=== PATIENT | female | born 1975 | race Caucasian/White ===

== ENCOUNTER → 2016-06-28 | Outpatient (REF) | payer OTHER, MEDICARE, MEDICAID ==
[~2016-06-28] MED LIST: *BLDWK1; /LAMO10TA OR; /QUET10TA OR; AMO250; AMO500; ASPI325T OR; CETI10TA PO; COLA100C2 OR; CYCL10TA PO; DIAZ5TAB PO; DOXYCYC100 PO; FLEXERIL PO; GABA300C3 PO; HYDR-3713 PO; IBUP800T OR; LAMISILCR TOPICAL; LAMO150T PO; LATU20TA PO; NAPROSY500 PO; NORC10TA2 PO; PERC5TAB6 PO; PHENERGA25 PO; PREDNISO50 PO; PREVMIS PO; PROTONIX40; SENN8.6T14 OR; SERO200T OR; SERT-138 PO; TAMS0.4C2 PO; TRAZ50TA4 PO; TYLENOL #3 ELIXIR PO; VICO5TAB OR; VITA100066 PO; VITATAB73 PO; VITMTA PO; ZOLO50TA OR; ZYRTEC10 PO
== END | disposition home or self-care (01) ==
LOC: M LAB REF 12:26
PROVIDERS: ATTEND Physician Assistant
DX: B34.9 Viral infection, unspecified (principal)

== ENCOUNTER 2016-08-18 21:28 | Inpatient (IN) | payer OTHER, MEDICARE, MEDICAID ==
[~2016-08-18] VITALS: Ht 172.7 cm; Wt 107.9 kg
[~2016-08-18 21:28] MED LIST changes: +GABA-282 PO; -GABA300C3 PO
[2016-08-18] MEDS ORDERED: ACYC200CA PO (21:55)
[2016-08-18] MEDS ORDERED: HYDR-3713 PO (21:55)
[2016-08-18] MEDS ORDERED: CYCL10TA PO (21:55)
[2016-08-18] MEDS ORDERED: NAPR500T2 PO (21:55)
[2016-08-18] MEDS ORDERED: GABA600T PO (21:55)
[2016-08-18] MEDS ORDERED: QUET5TAB PO (21:55)
[2016-08-18] MEDS ORDERED: TRAM50TA2 PO (21:55)
[2016-08-18] MEDS ORDERED: HYDROmorphone HCL 1 MG/ML SYRINGE (J1170) IV ONE (23:15)
[2016-08-18] MEDS ORDERED: KETOROLAC 30 MG/ML VIAL (J1885) IV ONE (23:15)
[2016-08-18] MEDS ORDERED: diphenhydrAMINE INJ 50MG/ML VIAL (J1200) IV STA (23:57)
[2016-08-19] MEDS ORDERED: MOM 30ML SUSPENSION UDC PO PRN (02:15)
[2016-08-19] MEDS ORDERED: traZODone 50 MG TAB PO PRN (02:15)
[2016-08-19] MEDS ORDERED: ACETAMINOPHEN TAB 650MG DOSE (2X325MG) PO PRN (02:15)
[2016-08-19] MEDS ORDERED: MAALOX 30 ML SUSP *UDC PO PRN (02:15)
[2016-08-19 03:11] VITALS: BP 139/82
[2016-08-19] MEDS: ACYCLOVIR 200 MG CAPSULE PO SCH ×2 (14:36→22:17)
[2016-08-19] MEDS: DOCUSATE SODIUM 100 MG CAP PO SCH ×2 (14:36→22:17)
[2016-08-19] MEDS: traMADol 50 MG TAB PO SCH ×2 (14:37→22:19)
[2016-08-19] MEDS: diazePAM 5 MG TAB PO SCH ×2 (14:37→22:18)
[2016-08-19] MEDS: NAPROXEN 250 MG TAB PO SCH ×2 (14:38→22:20)
[2016-08-19] MEDS: CYCLOBENZAPRINE 10 MG TAB PO SCH ×2 (15:37→22:17)
[2016-08-19] MEDS: GABAPENTIN 300 MG CAP PO SCH ×2 (15:37→22:18)
[2016-08-19] MEDS ORDERED: HYDR-3713 PO (16:46)
[2016-08-19 18:00] VITALS: BP 136/94
[2016-08-19] MEDS: NORCO, ANEXSIA 5/325MG TABLET (HYDROcodone/ACETAMINOPHEN) PO PRN ×2 (18:17→22:31)
[2016-08-19] MEDS: diphenhydrAMINE INJ 50MG/ML VIAL (J1200) IM PRN ×2 (18:17→22:31)
[2016-08-19] MEDS: QUEtiapine FUMARATE 100 MG TAB PO SCH (22:17)
[2016-08-19] MEDS: lamoTRIgine 100MG TAB PO SCH (22:19)
[2016-08-19] MEDS: DULoxetine 20 MG CAP (CYMBALTA) PO SCH (22:20)
[2016-08-19] MEDS: diphenhydrAMINE CREAM 30GM TOP PRN (23:43)
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
[2016-08-20 06:34] VITALS: BP 139/79
[2016-08-20 09:43] VITALS: BP 132/71
[2016-08-20] MEDS: DOCUSATE SODIUM 100 MG CAP PO SCH ×2 (09:46→20:49)
[2016-08-20] MEDS: GABAPENTIN 300 MG CAP PO SCH ×3 (09:46→20:49)
[2016-08-20] MEDS: diazePAM 5 MG TAB PO SCH ×2 (09:46→20:47)
[2016-08-20] MEDS: NAPROXEN 250 MG TAB PO SCH ×2 (09:47→20:49)
[2016-08-20] MEDS: ACYCLOVIR 200 MG CAPSULE PO SCH ×2 (09:47→20:47)
[2016-08-20] MEDS: CYCLOBENZAPRINE 10 MG TAB PO SCH ×3 (09:47→20:49)
[2016-08-20] MEDS: traMADol 50 MG TAB PO SCH ×2 (09:48→20:48)
[2016-08-20] MEDS: diphenhydrAMINE CREAM 30GM TOP PRN (09:52)
[2016-08-20] MEDS: NORCO, ANEXSIA 5/325MG TABLET (HYDROcodone/ACETAMINOPHEN) PO PRN ×2 (09:53→18:08)
[2016-08-20] MEDS: diphenhydrAMINE 12.5MG/5ML ELIXIR UDC PO PRN (09:56)
[2016-08-20] MEDS ORDERED: LATU40TA PO (13:30)
[2016-08-20 18:00] VITALS: BP 137/87
--- NOTE | 2016-08-20 20:42 | ECGEPIP ---
Stationary ECG Study [facility] - ED Test Date: 2016-08-18 Pat Name: KMI BUCIO Department: Room: [place] [address] Gender: F Principal Strategist: mr : 1975 Requested By: EZEKIEL Williamson Order Number: [id number] Reading MD: Karin Hernandez Measurements Intervals [place] Rate: 93 P: 50 UT: 154 QRS: 62 QRSD: 98 T: 26 QT: 343 QTc: 427 Interpretive Statements SINUS RHYTHM INCREASED RATE 09/25/15 Electronically Signed On 08-20-2016 20:42:46 EDT by Karin Hernandez
[2016-08-20] MEDS: lamoTRIgine 100MG TAB PO SCH (20:47)
[2016-08-20] MEDS: DULoxetine 20 MG CAP (CYMBALTA) PO SCH (20:48)
[2016-08-20] MEDS: QUEtiapine FUMARATE 100 MG TAB PO SCH (20:49)
--- NOTE | 2016-08-20 22:13 | HPE ---
DATE OF ADMISSION: 08/19/2016 HISTORY OF PRESENT ILLNESS: Please refer to psychiatric history and evaluation for further details on this admission. This examination and history is intended for medical issues, which may need treatment, followup, or consult with this 40-year-old female. ALLERGIES: LITHIUM, TRAZODONE, MORPHINE. PRIMARY CARE PROVIDER: Dr. Garrett at the [facility]. SOCIAL HISTORY: She is . Lives with her daughter. She is retired from the . She retired in 1992. EtOH (ethanol): None. Smokes: None. Recreational drug use: Denies any. PAST MEDICAL HISTORY: 1. Kidney stones, for which she had a ureteral stent in September 2015. 2. She is currently being worked up for possible multiple sclerosis (MS). She has had an MRI at the [facility] in [place]. 3. She has history of degenerative disc disease. 4. Bilateral hip bursitis. 5. Chronic pain. PAST SURGICAL HISTORY: 1. Ureteral stent, September 2015. 2. Cholecystectomy. 3. Correction of lazy eye bilaterally as a child. LABORATORY STUDIES: WBC 7.7, hemoglobin 13.1, hematocrit 14.2, platelets 324. Electrolytes were normal. BUN 7, creatinine 0.52. AST was minimally elevated at 38. TSH was 3.99. HOME MEDICATIONS: - hydrocodone 5/325 one by mouth three times a day as needed for pain - Zovirax 200 mg by mouth twice a day for herpes suppression - cyclobenzaprine 10 mg by mouth three times a day as needed for muscle spasms - Valium 5 mg by mouth, which she states was recently increased to 10 mg three times a day as needed for muscle spasm. [facility] - gabapentin 600 mg by mouth three times a day - naproxen 500 mg by mouth as needed for pain - Seroquel 50 mg by mouth - tramadol 50 mg by mouth three times a day as needed for pain - Lamictal 150 mg by mouth at bedtime FAMILY HISTORY: Noncontributory. REVIEW OF SYSTEMS: No complaint of headache. No blurred or double vision. No fever. No chills. No tinnitus. No hoarseness. No difficulty swallowing. No lightheadedness. No vertigo. BREASTS: No masses. CARDIOVASCULAR: No complaints of chest pain, shortness of breath, palpitations, or edema. RESPIRATORY: No chronic cough. No sputum production. No hemoptysis. No orthopnea. No wheeze. GASTROINTESTINAL: No nausea, vomiting, diarrhea. No hematochezia. No melena. No complaints of abdominal pain. GENITOURINARY: No hematuria, dysuria, frequency. MUSCULOSKELETAL: Complains of joint pain, back pain, bilateral hip pain. Follows with [facility]. No joint redness or swelling. ENDOCRINE: No polyuria, polydipsia, polyphagia. HEMATOLOGICAL: No history of anemia. NEUROLOGIC: Is being currently worked up for MS per the patient at the [facility]. No history of seizures. PSYCH LOGICAL: See psychiatric in history of present illness (HPI). PHYSICAL EXAMINATION: A 40-year-old female, ambulating with a cane. Height 68 inches, weight 107.9 kg, body mass index of 36.2. Blood pressure 139/82, pulse 100, respirations 20, temperature 98.1. Patient is alert and oriented times three. Pupils are equal and reactive to light. Extraocular muscles (EOMs) intact. Corneae and sclerae clear. Conjunctivae is normal. No facial asymmetry. Pharynx, tongue, and gums pink and moist. Tongue is midline. Neck is supple without lymphadenopathy. No thyromegaly. No goiter. Chest: Clear to auscultation without wheeze or retraction. Heart is regular. Abdomen benign. Bowel sounds positive. Genitourinary ()/rectal not done. Extremities show arthritic changes. No cyanosis, clubbing, or edema. Peripheral pulses equal and palpable bilaterally. Skin is warm and dry. IMPRESSION AND PLAN: Psychiatric plan per psychiatry. Continued followup for workup of multiple sclerosis (MS) with [facility] Degenerative disc disease, bilateral hip bursitis. Continue treatment by [facility]. Consider pain consult. Patient requests Benadryl elixir for itching and hives. Will order 50 mg every 6 hours as needed for itching and spray for hives. TSH slightly elevated. Will get a thyroid profile.
--- NOTE | 2016-08-21 06:15 | IPN ---
DATE: 08/20/2016 The patient today states that she is feeling much better. She says that she is not having any suicidal thoughts and that she slept better and has no complaints. MENTAL STATUS EXAMINATION: She is alert and oriented times three. She is pleasant and cooperative, verbally spontaneous. Eye contact is good. There is no formal thought disorder. Mood is good. Affect full range and appropriate. She is not psychotic, suicidal or homicidal. Concentration fair. Memory intact. Insight and judgment good. DIAGNOSIS: Bipolar disorder type 1, depressed, severe. Post traumatic stress disorder. TREATMENT PLAN: At this point, the patient will continue to be monitored for continued resolution of suicidal ideations and continued elevation and stabilization of her mood.
[2016-08-21 06:42] VITALS: BP 116/70
[2016-08-21] MEDS: NORCO, ANEXSIA 5/325MG TABLET (HYDROcodone/ACETAMINOPHEN) PO PRN ×2 (06:56→15:00)
[2016-08-21] MEDS: diphenhydrAMINE 12.5MG/5ML ELIXIR UDC PO PRN (07:12)
[2016-08-21] MEDS: DOCUSATE SODIUM 100 MG CAP PO SCH (08:54)
[2016-08-21] MEDS: CYCLOBENZAPRINE 10 MG TAB PO SCH ×2 (08:54→15:00)
[2016-08-21] MEDS: GABAPENTIN 300 MG CAP PO SCH ×2 (08:54→15:00)
[2016-08-21] MEDS: diphenhydrAMINE CREAM 30GM TOP PRN (08:54)
[2016-08-21] MEDS: diazePAM 5 MG TAB PO SCH (08:55)
[2016-08-21] MEDS: NAPROXEN 250 MG TAB PO SCH (08:55)
[2016-08-21] MEDS: traMADol 50 MG TAB PO SCH (08:56)
[2016-08-21] MEDS: ACYCLOVIR 200 MG CAPSULE PO SCH (08:56)
--- NOTE | 2016-08-21 13:40 | DS.PDOC ---
[facility] Discharge Summary Discharge Summary DATE OF ADMISSION: Aug 19, 2016 at 02:08 DATE OF DISCHARGE: August 21, 2016 @ DISCHARGE DIAGNOSES: 1. Bipolar I disorder 2. PTSD REASON FOR ADMISSION: pt presented to ED with question about her oxycodone prescribed for back pain. She had taken her last dose for the day 2 hours earlier and wanted to know if she could take more or not. She had a serious suicide TREATMENT AND PROGRESS ON THE UNIT : Pt was admitted early Sunday a.m. with back pain. She adjusted easily to the unit. She took meds as prescribed but was complaining that [facility] staff did not order her Valium and her oxycodone correctly. Upon meeting with PNP this morning she requested discharge as she is planning a trip to [place] later in the week. She plans on driving there. She states she has a friend who will help her drive. Critical Power Install Technician contacted Hamlet Celestin of the [facility] program in [place], [place]. He has been working with this patient since April. He states she has been stable and doing well as an outpatient. He had no concerns with having her discharged today. Critical Power Install Technician also left a message for pts friend Katie Davis [phone]- [phone] attempting to obtain collateral information from her. This person has not made contact with the unit. When pt was informed that her discharge was being planned for today she was pleased. Later her friends started to call her and say they were coming up to visit and now Urszula is reporting chest pain and bilateral edema. She states "I can follow up as an outpatient" but since I' m in the hospital I thought someone could take care of it for me. She was not SOB, not diaphoretic and was not reporting pain in her face or arm. She had an H &P done over the weekend and there is no mention of any of this. Patient receives her medical care at the [facility]. She plans to follow up with them. Critical Power Install Technician also spoke with a friend to Jeni Renae, Katie Davis. This person states that she has known Urszula for a long time and that she found her doing well prior to the hospitalization. To her knowledge Urszula was here to find out about her medication for back pain. She offers that one time when Urszula felt her parents did not give her enough attention she told them she had AIDS when she did not. She also has observed Urszula on the phone changing her voice to sound ill and once off the phone she resumed her usual speaking voice. In the friend's estimation she said that Urszula "makes things up" and you cannot always tell what is going on with her. DISCHARGE ASSESSMENT: pt requested discharge and appeared to be appropriate. No SI, [place]. No delusional thoughts. Not depressed. She is anticipating a trip to [place] with a friend and her daughter. Pt then became upset when discharge was imminent and began c/o symptoms related to "h-pylori, chest pain and edema". She had an EKG during this admission. MENTAL STATUS EXAMINATION ON DISCHARGE: Patient is a 40year old female, who is retired from the [employer] and on disability. Speech is clear, fluent and spontaneous. Language skills are: articulate Thought processes: no delusions, no hallucinations, linear, clear. Thought content: focused on pain, physical health, trip to [place]. Abstract reasoning, and computation: adequate Description of associations: WNL Description of abnormal or psychotic thoughts: none Judgment: limited Insight: poor Orientation to :oriented to person, place, time. Recent and remote memory: intact Attention span and concentration: adequate Fund of knowledge: adequate Mood: irritable. Affect: anxious, irritable. MEDICATIONS ON DISCHARGE: Pt has adequate medications at home. No changes in psychiatric medications at this time. PLAN/FOLLOWUP ARRANGEMENTS: pt receives services as an outpatient at the [facility] in [place], part of the [facility]. Pt states she has a psychiatry appt on Sunday of this week. The amount of time spent in the coordination of care for this patient was approximately 50 minutes. Vital Signs/I&Os Vital Signs Date Time Temp Pulse Resp B/P Pulse Ox O2 Delivery O2 Flow Rate FiO2 08/21/16 08:56 16 08/21/16 06:42 98.1 105 116/70 08/19/16 18:00 Room Air 08/19/16 02:30 98 Medications Scheduled Acyclovir (Zovirax) 200 Mg Cap 200 MG PO 5XD (Reported) Gabapentin (Gabapentin) 600 Mg Tab 600 MG PO TID (Reported) Lamotrigine (Lamotrigine) 150 Mg Tab 150 MG PO QHS (Reported) Lurasidone Hydrochloride (Latuda) 40 Mg Tab 40 MG PO DAILY . (Reported) Scheduled PRN Acetaminophen/Hydrocodone (Hydrocodone/Acetaminophen 5-325 mg) 1 Tab Tab 1 TAB PO TID PRN PRN PAIN (Reported) Cyclobenzaprine HCl (Cyclobenzaprine HCl) 10 Mg Tab #15 10 MG PO TID PRN PRN MUSCLE SPASMS (Reported) Diazepam (Diazepam) 5 Mg Tab 5 MG PO BID PRN PRN ANXIETY (Reported) Naproxen (Naproxen) 500 Mg Tab 500 MG PO PRN PAIN OR FEVER (Reported) Tramadol HCl (Tramadol HCl) 50 Mg Tab 50 MG PO PRN PAIN OR FEVER (Reported) Miscellaneous Medications Quetiapine Fumerate (Quetiapine Fumarate) 50 Mg Tab 50 MG PO (Reported) Allergies Coded Allergies: Morphine (Verified Allergy, Mild, RASH, 08/18/16) Pt reports she can tolerate if she is pre-medicated with Benadryl Hector (Unverified Allergy, Unknown, N/V, 08/19/16) Trazodone (Unverified Allergy, Unknown, CHACE, 08/19/16) Italia Freeman Aug 21, 2016 13:40
[2016-08-21] MEDS ORDERED: COLA100C3 PO (15:13)
[2016-08-21] MEDS ORDERED: CYMB1CAP4 PO (16:06)
--- NOTE | 2016-08-21 18:02 | ECGEPIP ---
Stationary ECG Study [facility] Test Date: 2016-08-21 Pat Name: KIM BUCIO Department: Room: [place] [address] Gender: F Inlayer Silver: GREG : 1975 Requested By: Cristy Vidales Order Number: [id number] Reading MD: Collins Sol Measurements Intervals [place] Rate: 108 P: 56 [place]: 163 QRS: 63 QRSD: 101 T: 14 QT: 323 QTc: 433 Interpretive Statements SINUS TACHYCARDIA Otherwise normal Electronically Signed On 08-21-2016 18:02:39 EDT by Collins Sol
[2016-08-22] MEDS ORDERED: VITATAB11 PO (01:24)
[2016-08-22] MEDS ORDERED: BENA25CA4 PO (01:24)
[2016-08-22] MEDS ORDERED: PRENTAB9 PO (01:24)
[2016-08-22] MEDS ORDERED: FISH1000 PO (01:24)
[2016-08-22] MEDS ORDERED: BENA2CRE3 EXT (01:24)
[2016-08-22] MEDS ORDERED: VITA200016 PO (01:24)
== END 2016-08-21 18:05 | disposition home or self-care (01) | DRG 885 ==
LOC: EDBD 21:28 → M ED 22:32 → M ED INP 08-19 02:08 → M PSY 08-19 02:53
PROVIDERS: ADMIT Psychiatry & Neurology Psychiatry; ATTEND Psychiatry & Neurology Child & Adolescent Psychiatry
DX: F31.4 Bipolar disorder, current episode depressed, severe, without psychotic features (principal); F43.10 Post-traumatic stress disorder, unspecified; M54.9 Dorsalgia, unspecified; Z91.410 Personal history of adult physical and sexual abuse; M70.71 Other bursitis of hip, right hip; M70.72 Other bursitis of hip, left hip; Z87.442 Personal history of urinary calculi; Z96.0 Presence of urogenital implants; Z79.891 Long term (current) use of opiate analgesic; Z79.899 Other long term (current) drug therapy; Z88.5 Allergy status to narcotic agent; Z88.8 Allergy status to other drugs, medicaments and biological substances

== ENCOUNTER 2016-08-21 20:40 | Inpatient (IN) | payer OTHER, MEDICARE, MEDICAID ==
[~2016-08-21] VITALS: Ht 172.7 cm; Wt 109.5 kg
[~2016-08-21 20:40] MED LIST changes: +ACYC200CA PO; +COLA100C3 PO; +CYMB1CAP4 PO; +GABA600T PO; +LATU40TA PO; +NAPR500T2 PO; +QUET5TAB PO; +TRAM50TA2 PO
[2016-08-21] MEDS ORDERED: ASPIRIN 81 MG CHEW TABLET PO ONE (22:15)
[2016-08-21] MEDS ORDERED: GI COCKTAIL 50ML BTL(HYOSCYAMINE/MAALOX/LIDOCAINE VISCOUS)(1:3:1) PO ONE (22:15)
[2016-08-21 22:17] LABS: INR 0.93
[2016-08-21 22:32] LABS: DIFF SLIDE NUMBER 356; MEAN CORPUSCULAR HEMOGLOBIN 28.6 pg (27.0-33.0); MEAN CORPUSCULAR HGB CONC 32.7 g/dl (32.0-36.5); MEAN CORPUSCULAR VOLUME 87.6 fl (80.0-96.0); PLATELET COUNT, AUTOMATED 349 k/mm3 (150-450); RED CELL DISTRIBUTION WIDTH 13.2 % (11.5-14.5); WHITE BLOOD COUNT 7.5 K/mm3 (4.0-10.0)
[2016-08-21 22:33] LABS: ALBUMIN 3.7 GM/DL (3.2-5.2); ALBUMIN/GLOBULIN RATIO 1.06 (1.00-1.93); ALKALINE PHOSPHATASE 78 U/L (45-117); ALT/SGPT 81 U/L (12-78); ANION GAP 7 MEQ/L (8-16); AST/SGOT 50 U/L (15-37); BILIRUBIN,DIRECT < 0.1 MG/DL (0.0-0.2); BILIRUBIN,TOTAL 0.2 MG/DL (0.2-1.0); BLOOD UREA NITROGEN 12 MG/DL (7-18); CALCIUM LEVEL 8.9 MG/DL (8.5-10.1); CARBON DIOXIDE LEVEL 31 MEQ/L (21-32); CHLORIDE LEVEL 101 MEQ/L (98-107); CREATININE FOR GFR 0.57 MG/DL (0.55-1.02); GLOMERULAR FILTRATION RATE > 60.0 (>58); GLUCOSE, FASTING 99 MG/DL (70-105); POTASSIUM SERUM 4.1 MEQ/L (3.5-5.1); SODIUM LEVEL 139 MEQ/L (136-145); TOTAL PROTEIN 7.2 GM/DL (6.4-8.2)
[2016-08-21 22:49] LABS: BASOPHILS 2 % (0-4); EOSINOPHILS 3 % (0-5)
[2016-08-21] MEDS ORDERED: ISOVUE-370 76% 100ML VIAL (Q9967) As Ordered ONE (23:05)
--- NOTE | 2016-08-21 23:20 | REPUSA ---
Clinical history: Pain, swelling. Findings: The common femoral, superficial femoral, popliteal, and other deep venous structures compre ss normally and demonstrate normal color Doppler flow. Normal venous waveforms with augmentation are seen. Impression: No evidence of deep vein thrombosis in either femoral popliteal venous system.
--- NOTE | 2016-08-21 23:30 | REPUSA ---
CT angiogram of the chest Clinical statement: Chest pain and shortness of breath. Technique: Multiple axial CT images were obtained from the thoracic inlet through the upper abdomen a fter a bolus administration of nonionic intravenous contrast. Coronal and sagittal reconstructions we re also obtained. No comparison is available. Findings: The pulmonary arteries are well-opacified with contrast, with no intraluminal filling defec ts to suggest embolism. The thoracic aorta is unremarkable. Thyroid gland is within normal limits. Th ere is no thoracic lymphadenopathy. There are no pericardial or pleural effusions. There are patchy i nfiltrates in the right upper lobe. Limited imaging of the upper abdomen is unremarkable. There are n o suspicious osseous lesions. Impression: 1. No evidence of pulmonary embolism. 2. Right upper lobe pneumonia.
[2016-08-22] MEDS ORDERED: diphenhydrAMINE INJ 50MG/ML VIAL (J1200) IV STA (00:06)
[2016-08-22] MEDS ORDERED: BISACODYL 10 MG SUPP PR PRN (00:15)
[2016-08-22] MEDS ORDERED: CEFEPIME HCL 2 GM in D5W MINI-BAG PLUS 50 ML IV ONE (00:15)
[2016-08-22] MEDS ORDERED: ACETAMINOPHEN 500 MG TAB PO PRN (00:15)
[2016-08-22] MEDS ORDERED: AZITHROMYCIN INJ 500 MG, VIAL MATE ADAPTER 1 EACH in D5W 250 ML IV ONE (00:15)
[2016-08-22] MEDS ORDERED: ONDANSETRON 4MG/2ML VIAL (J2405) IV PRN (00:15)
[2016-08-22] MEDS ORDERED: BENA2CRE3 EXT (01:24)
[2016-08-22] MEDS ORDERED: FISH1000 PO (01:24)
[2016-08-22] MEDS ORDERED: BENA25CA4 PO (01:24)
[2016-08-22] MEDS ORDERED: VITATAB11 PO (01:24)
[2016-08-22] MEDS ORDERED: VITA200016 PO (01:24)
[2016-08-22] MEDS ORDERED: PRENTAB9 PO (01:24)
[2016-08-22] MEDS: ACYCLOVIR 200 MG CAPSULE PO SCH ×3 (02:19→20:48)
[2016-08-22] MEDS: CYCLOBENZAPRINE 10 MG TAB PO SCH ×4 (02:19→20:48)
[2016-08-22] MEDS: GABAPENTIN 300 MG CAP PO SCH ×4 (02:19→20:49)
[2016-08-22] MEDS: traMADol 50 MG TAB PO SCH ×4 (02:20→20:47)
[2016-08-22] MEDS: diazePAM 5 MG TAB PO SCH ×3 (02:21→20:48)
[2016-08-22] MEDS: SENOKOT S TAB PO SCH ×3 (02:34→20:47)
[2016-08-22] MEDS: QUEtiapine FUMARATE 50 MG TAB PO SCH ×2 (02:34→20:49)
[2016-08-22] MEDS: DULoxetine 20 MG CAP (CYMBALTA) PO SCH ×2 (02:35→20:49)
[2016-08-22 03:25] VITALS: BP 129/69
[2016-08-22 06:00] VITALS: BP 126/72
--- NOTE | 2016-08-22 06:21 | ECGEPIP ---
Stationary ECG Study [facility] - ED Test Date: 2016-08-21 Pat Name: KIM BUCIO Department: Room: - Gender: F Aboriginal Community Council Member: radha : 1975 Requested By: JEZ Black Order Number: [id number] Reading MD: Ruddy Garcia Measurements Intervals [place] Rate: 107 P: 61 [place]: 165 QRS: 62 QRSD: 100 T: 23 QT: 324 QTc: 434 Interpretive Statements SINUS TACHYCARDIA Electronically Signed On 08-22-2016 6:21:04 EDT by Ruddy Garcia
[2016-08-22 08:00] VITALS: BP 130/66
[2016-08-22] MEDS ORDERED: diphenhydrAMINE 25 MG CAP PO SCH (09:00)
[2016-08-22] MEDS ORDERED: AZITHROMYCIN 250 MG TAB PO SCH (09:00)
[2016-08-22] MEDS ORDERED: FUROSEMIDE 100 MG/10 ML VIAL (J1940) IV SCH (09:00)
[2016-08-22] MEDS ORDERED: SENOKOT S TAB PO SCH (09:00)
[2016-08-22] MEDS: PANTOPRAZOLE 40MG TAB (PROTONIX) PO SCH (10:02)
[2016-08-22] MEDS: OMEGA-3 1050MG CAPSULE PO SCH (10:02)
[2016-08-22] MEDS: ENOXAPARIN 40 MG/0.4 ML SYRINGE (J1650) SC SCH (10:04)
[2016-08-22] MEDS: MIRALAX *UNIT DOSE* 17GM PACKET PO SCH (10:04)
[2016-08-22] MEDS: NORCO, ANEXSIA 5/325MG TABLET (HYDROcodone/ACETAMINOPHEN) PO PRN ×3 (11:38→20:53)
[2016-08-22] MEDS ORDERED: CEFEPIME HCL 1 GM in D5W MINI-BAG PLUS 50 ML IV SCH (12:00)
[2016-08-22 12:25] VITALS: BP 138/84
[2016-08-22] MEDS ORDERED: diphenhydrAMINE INJ 50MG/ML VIAL (J1200) IV ONE (12:30)
[2016-08-22] MEDS: AZITHROMYCIN 250 MG TAB PO SCH (13:03)
[2016-08-22] MEDS: cefTRIAXone SOD 2 GM in D5W MINI-BAG PLUS 50 ML IV SCH (13:04)
[2016-08-22 14:00] VITALS: BP 131/60
--- NOTE | 2016-08-22 16:39 | IPN ---
DATE: 08/22/2016 Ms. Macdonald is feeling well today and would like to go home. She is up, walking around, not complaining of cough. No chest pain. Does have some fullness in her chest, although she is pointing to her epigastrium when she says this. No complaints of depression of suicidal ideation. Temperature 98.8, pulse 107, respiratory rate 16, blood pressure 130/66, 97% on room air. She is awake, appropriately interactive. Pleasantly conversive. Somewhat pressured speech. Mucous membranes moist. Neck supple, somewhat thick. I do not appreciate any elevation of jugular venous pressure. Breathing is symmetrical. Inspiration to expiration (I:E) ratio is 1:3. There are no wheezes, rales or rhonchi. There are some upper airway sounds noted throughout. Heart is in regular rate and rhythm. It is borderline tachycardic on my examination. Abdomen soft, doughy, nontender. There is trace bilateral lower extremity edema. White cell count 7.5. Creatinine 0.57. ASSESSMENT: This is a 40-year-old. PLAN: 1. Infectious disease. Patient is started on ceftriaxone and azithromycin. Cultures are pending. Will order sputum if it becomes available. This is certainly not an impressive presentation. 2. There is some concern about fluid overload. At this point, I have elected to stop her Lasix. 3. Patient has possible multiple sclerosis, with [facility] 4. Patient has chronic back pain. Will continue her on her home medications. 5. Will monitor the patient in hospital. Possible discharge tomorrow. 6. Patient has underlying psychiatric disorder and was recently discharged from the mental health unit. Please note: This dictation is somewhat limited, as today's history and physical (H P) has yet to be transcribed.
[2016-08-22] MEDS: diphenhydrAMINE 25 MG CAP PO PRN ×2 (16:50→20:53)
--- NOTE | 2016-08-22 17:56 | HPE ---
DATE OF ADMISSION: 08/22/2016 PRIMARY CARE PROVIDER: Dr. Garrett of [facility]. CHIEF COMPLAINT: Sharp epigastric pain for one day, shortness of breath and leg swelling worsening over one day. PAST MEDICAL HISTORY: 1. Bipolar disorder. 2. Post traumatic stress disorder (PTSD). 3. Depression with prior suicidal attempt in February 26. 4. Chronic back pain. 5. Bilateral bursitis. 6. Degenerative disc disease. 7. Paresthesias and spasticity of the right side of the body, currently being worked up for possible multiple sclerosis at the [facility]. 8. History of kidney stones for which she had a ureteral stent in September 2015. 9. History of Helicobacter (H.) pylori infection. 10. Neuropathy. 11. Hyperlipidemia. 12. Muscle spasms. 13. Recurrent itching. HISTORY OF PRESENT ILLNESS: This is a 40-year-old female who was admitted to the [facility] on August 19, 2016 and discharged from [facility] on August 22, 2016. She was admitted there as a suicidal call; however, the patient absolutely denies suicidal ideation. As per her, she had just come to the emergency room for back pain and to see if the pain medications could be adjusted. However, she got some Dilaudid in the emergency department and after that she fell asleep, then the next thing she knew she was being admitted [facility] as a suicidal attempt. Last night the patient, while in [facility], she complained of sharp, epigastric pain and she had pain when swallowing any food or eating any food. She also noticed increasing swelling of both of her legs and some shortness of breath. She mentioned this to the nurses; however, she was felt to be stable and so she was discharged home. After going home she comes back within a few hours complaining of worsening, sharp epigastric pain and unable to eat or swallow any food. She also had increased swelling of the legs and shortness of breath in the emergency department. The patient had a CT of the chest done which was negative for pulmonary embolism but was read as right upper lobe infiltrates and pneumonia. The patient got Cefepime and azithromycin in the emergency room; however the patient did not have any fever, did not have any symptoms of cough. Her white count was not elevated. The patient did definitely have features of fluid overload so my suspicion for pneumonia is less and the possibility of congestive heart failure is high. The patient is being admitted to the hospitalist service for possible congestive heart failure, rule out underlying pneumonia and epigastric pain, rule out gastritis or peptic ulcer disease. PAST SURGICAL HISTORY: 1. Ureteral stent placement in September 2015. 2. Cholecystectomy. 3. Correction of lazy eye bilateral as a child. HOME MEDICATIONS: - acetaminophen hydrocodone one tablet by mouth by mouth three times a day as needed for pain - Acyclovir 200 mg by mouth twice a day - Vitamin B complex one tablet by mouth daily - cyclobenzaprine 10 mg by mouth three times a day for muscle spasms - diazepam 5 mg by mouth twice a day for anxiety - diphenhydramine 25 mg by mouth three times a day as needed itching - Benadryl cream - Colace 100 mg by mouth twice a day - Cymbalta 40 mg by mouth at bedtime - fish oil 1000 mg by mouth daily - gabapentin 600 mg by mouth three times a day - lamotrigine 150mg by mouth at bedtime - multivitamin one tablet by mouth daily - naproxen 500 mg by mouth twice a day - quetiapine 50 mg at bedtime - tramadol 50 mg by mouth three times a day - vitamin D 2000 units one tablet by mouth daily ALLERGIES: LITHIUM, MORPHINE and TRAZODONE. SOCIAL HISTORY: The patient denies alcohol abuse and does not smoke. She does not use any recreational drugs. REVIEW OF SYSTEMS: All ten-point review of systems are negative except those mentioned in history of present illness. PHYSICAL EXAMINATION: VITAL SIGNS: Temperature 98.3, pulse 100, blood pressure 119/72, pulse oximetry 95% on room air. GENERAL: The patient awake, alert and oriented times three, lying in bed in no acute distress. HEENT: Normocephalic atraumatic. Moist mucous membranes. Anicteric eyes. CHEST: Clear to auscultation. CARDIOVASCULAR: S1, S2, regular, tachycardic, no rub, no murmur. ABDOMEN: Soft, there is epigastric tenderness present and also left tenderness present. Bowel sounds normal. EXTREMITIES: 1 to 2+ bipedal edema. LABORATORY DATA: WBC 7.5, hemoglobin 13, platelets 349. Sodium 139, potassium 4.1, chloride 101, bicarbonate 31, BUN 12, creatinine 0.57, AST 50, ALT 81, cardiac enzymes first set are negative. Lipase is normal. TSH is normal. Coagulation studies are normal. Vascular ultrasound shows no evidence of deep venous thrombosis (DVT) in bilateral lower limbs. CT angiogram of the chest: No pulmonary embolism. There is right upper lobe patchy infiltrates. ASSESSMENT AND PLAN: This is a 40-year-old female admitted for epigastric pain, bipedal edema, shortness of breath. PLAN: 1. Bipedal edema and shortness of breath. The patient definitely has features of fluid overload. Will get an echocardiogram to assess cardiac function. Will start the patient on Lasix 60 twice a day. Unsure whether the patient has pneumonia as the white count is not elevated. The patient is not febrile, does not have any cough. CT angiogram (angio) read as patchy right upper lobe infiltrative pneumonia. It could be fluid also, at present will hold off on Cefepime and azithromycin. If the patient spikes fever, white count rises, blood cultures become positive will restart the patient on antibiotics. 2. Epigastric pain. The patient has history of Helicobacter (H.) pylori gastritis years before. Very concerned about this. Will check stool for H. Pylori and also serum H. Pylori antibody IgM. Will continue the patient on pantoprazole, if H. Pylori comes back positive, will give definitive treatment. 3. Bipolar disorder and post traumatic stress disorder (PTSD). Will continue with home medications. 4. Chronic back pain, muscle spasms and spasticity. Will continue with cyclobenzaprine, gabapentin, lamotrigine, Valium and hydrocodone acetaminophen. 5. Anxiety. Will continue with Valium. 6. Hyperlipidemia. Will continue with fish oil. 7. Chronic back pain. Will continue with tramadol. Will hold off on Naproxen in view of fluid overload. Will continue with Cymbalta, cyclobenzaprine. 8. Deep venous thrombosis (DVT) prophylaxis has been ordered. 9. Gastrointestinal (GI) prophylaxis has been ordered.
[2016-08-22] MEDS: GI COCKTAIL 50ML BTL(HYOSCYAMINE/MAALOX/LIDOCAINE VISCOUS)(1:3:1) PO PRN (18:37)
[2016-08-22] MEDS: lamoTRIgine 100MG TAB PO SCH (20:47)
[2016-08-22 22:00] VITALS: BP 136/73
[2016-08-23 06:00] VITALS: BP 104/57
[2016-08-23 06:55] LABS: BASO # 0.1 K/mm3 (0.0-0.2); EOS # 0.4 K/mm3 (0.0-0.50); EOS % 5.7 % (0.0-3.0); LARGE UNSTAINED CELL # 0.1 K/mm3 (0.0-0.4); LARGE UNSTAINED CELL % 2.1 % (0.0-4.0); LYMPH # 2.7 K/mm3 (1.5-4.5); LYMPH % 42.5 % (24.0-44.0); MEAN CORPUSCULAR HGB CONC 31.5 g/dl (32.0-36.5); MEAN CORPUSCULAR VOLUME 88.8 fl (80.0-96.0); MONO # 0.5 K/mm3 (0.0-0.8); MONO % 7.3 % (0.0-5.0); NEUTROPHILS # 2.6 K/mm3 (1.8-7.7); NEUTROPHILS % 41.5 % (36.0-66.0); PLATELET COUNT, AUTOMATED 351 k/mm3 (150-450); RED CELL DISTRIBUTION WIDTH 13.1 % (11.5-14.5); WHITE BLOOD COUNT 6.1 K/mm3 (4.0-10.0)
[2016-08-23 07:22] LABS: ALBUMIN/GLOBULIN RATIO 0.86 (1.00-1.93); ALKALINE PHOSPHATASE 74 U/L (45-117); ALT/SGPT 63 U/L (12-78); ANION GAP 5 MEQ/L (8-16); AST/SGOT 34 U/L (15-37); BILIRUBIN,TOTAL 0.1 MG/DL (0.2-1.0); BLOOD UREA NITROGEN 12 MG/DL (7-18); CALCIUM LEVEL 8.5 MG/DL (8.5-10.1); CARBON DIOXIDE LEVEL 33 MEQ/L (21-32); CHLORIDE LEVEL 101 MEQ/L (98-107); CREATININE FOR GFR 0.56 MG/DL (0.55-1.02); GLOMERULAR FILTRATION RATE > 60.0 (>58); GLUCOSE, FASTING 115 MG/DL (70-105); POTASSIUM SERUM 4.2 MEQ/L (3.5-5.1); SODIUM LEVEL 139 MEQ/L (136-145); TOTAL PROTEIN 6.5 GM/DL (6.4-8.2)
[2016-08-23] MEDS: ENOXAPARIN 40 MG/0.4 ML SYRINGE (J1650) SC SCH (08:22)
[2016-08-23] MEDS: MIRALAX *UNIT DOSE* 17GM PACKET PO SCH (08:22)
[2016-08-23] MEDS: GABAPENTIN 300 MG CAP PO SCH ×3 (08:22→20:51)
[2016-08-23] MEDS: traMADol 50 MG TAB PO SCH ×3 (08:24→20:50)
[2016-08-23] MEDS: SENOKOT S TAB PO SCH ×2 (08:24→20:51)
[2016-08-23] MEDS: OMEGA-3 1050MG CAPSULE PO SCH (08:24)
[2016-08-23] MEDS: diazePAM 5 MG TAB PO SCH ×2 (08:24→20:50)
[2016-08-23] MEDS: ACYCLOVIR 200 MG CAPSULE PO SCH ×2 (08:24→20:48)
[2016-08-23] MEDS: CYCLOBENZAPRINE 10 MG TAB PO SCH ×3 (08:24→20:51)
[2016-08-23] MEDS: AZITHROMYCIN 250 MG TAB PO SCH (08:25)
[2016-08-23] MEDS: PANTOPRAZOLE 40MG TAB (PROTONIX) PO SCH (08:25)
[2016-08-23] MEDS: diphenhydrAMINE 25 MG CAP PO PRN ×3 (08:28→20:48)
[2016-08-23] MEDS: NORCO, ANEXSIA 5/325MG TABLET (HYDROcodone/ACETAMINOPHEN) PO PRN ×3 (08:30→20:49)
[2016-08-23] MEDS: GI COCKTAIL 50ML BTL(HYOSCYAMINE/MAALOX/LIDOCAINE VISCOUS)(1:3:1) PO PRN ×2 (08:43→18:54)
[2016-08-23] MEDS: cefTRIAXone SOD 2 GM in D5W MINI-BAG PLUS 50 ML IV SCH (12:53)
[2016-08-23 14:00] VITALS: BP 129/79
[2016-08-23] MEDS ORDERED: GI COCKTAIL 50ML BTL(HYOSCYAMINE/MAALOX/LIDOCAINE VISCOUS)(1:3:1) PO ONE (14:00)
--- NOTE | 2016-08-23 14:34 | IPN ---
DATE OF SERVICE: 08/23/2016 Ms. Macdonald has a couple complaints today. She is complaining that her urine feels like it is coming out in the form of Jell-O, although when she looks at it after it has passed, it seems to be normal liquid, but it feels like Jell-O as it is coming out. She has no increased frequency. She has an epigastric discomfort with meals. No chest pain. Not particularly short of breath. Is tolerating a diet. Temperature 97.9, pulse 107, respiratory rate 17, blood pressure 104/57, 95% on room air. Intake and output (I and O): Positive fluid balance of 600. Weighs 109.8 kg. Is awake, pleasantly conversant. No acute distress. Head is normocephalic. Pupils equal, round, and reactive. Mucous membranes moist. Neck is supple. Breathing is symmetrical and rested. Heart is in a regular rate and rhythm. Not tachycardic on my examination. Abdomen: Soft, doughy, nontender. Is moving all four extremities. Strength is symmetrical. Negative leg raise test. White cell count 6.1, hemoglobin 13.3, BUN 12, creatinine 0.56. Helicobacter (H.) pylori antibody is pending. Blood cultures are negative at 24 hours. My assessment is as follows: This is a 40-year-old with presumed pneumonia. The plan is as follows: 1. Infectious disease. The patient is on ceftriaxone and azithromycin, which can likely be switched to orals today. She is not making sputum. Breathing is rested. 2. There is some concern about fluid overload. The patient says that whatever edema she has is resolved. 3. The patient has possible multiple sclerosis. [facility]up is [facility] the [facility] 4. The patient has chronic back pain. Is complaining of it today. Has no neurologic findings on physical examination. I previously performed a rectal examination on the patient. Will order an MRI to complete the workup. 5. The patient has underlying psychiatric disorder and was recently discharged from the mental health unit. I am not sure that her mind is functioning at its baseline at this point. I have asked for a psychiatric consult. 6. The patient complaining of urinary discomfort, which I guess is dysuria. Will check a urinalysis (UA) and monitor her clinically.
--- NOTE | 2016-08-23 17:00 | REP ---
MRI lumbar spine without contrast: History: Increased low back pain. Comparison MRI lumbar spine study is from January 24, 2008. Technique: Sagittal and axial T1 and T2-weighted scans are acquired in the usual fashion with and without fat saturation. Sequences include spin echo, turbo spin-echo, and STIR imaging sequences. MRI findings: Lumbar vertebral body heights are preserved and alignment is normal. Cortical and medullary bone signal intensity are normal. There is decreased disc space height and signal intensity at the L2-3 and to a lesser extent L5-S1 and L4-5 discs consistent with early degenerative disc disease. This is most pronounced at L2-3 and is slightly more pronounced than on the 2007 prior exam. Conus medullaris is at the bottom of the L2 vertebral body, unchanged in position, otherwise unremarkable. No extra spinal abnormality is observed. Normal caliber aorta is seen. The L1-2 disc level is unremarkable. At L2-3, axial and sagittal images demonstrate a small left paracentral disc protrusion effacing the ventral subarachnoid space. Pedicles and posterior elements are intact. No neural foraminal narrowing is seen. No central canal stenosis is noted. At L3-4, there is no abnormality. At L4-5, there is minimal diffuse bulging of the posterior disc margin. No thecal sac compression is seen. No other abnormality at L4-5. At L5-S1, there is mild bilateral osteoarthritic facet hypertrophy. The posterior disc margin is intact. No neural foraminal narrowing is seen. Impression: Left paracentral disc protrusion at L2-3. Degenerative disc changes at L2-3 and to a lesser extent L5-S1 and L4-5. Mild diffuse disc bulging at L4-5. Facet osteoarthritic hypertrophy at L5-S1. Signed by Main Rojas MD 08/24/2016 01:09 P
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
[2016-08-23] MEDS: QUEtiapine FUMARATE 50 MG TAB PO SCH (20:48)
[2016-08-23] MEDS: DULoxetine 20 MG CAP (CYMBALTA) PO SCH (20:50)
[2016-08-23] MEDS: lamoTRIgine 100MG TAB PO SCH (20:51)
[2016-08-23 22:00] VITALS: BP 138/69
[2016-08-24 06:00] VITALS: BP 121/55
[2016-08-24 06:26] LABS: BASO % 0.8 % (0.0-1.0); EOS # 0.3 K/mm3 (0.0-0.50); LARGE UNSTAINED CELL # 0.2 K/mm3 (0.0-0.4); LARGE UNSTAINED CELL % 3.1 % (0.0-4.0); LYMPH # 2.6 K/mm3 (1.5-4.5); LYMPH % 38.4 % (24.0-44.0); MEAN CORPUSCULAR HEMOGLOBIN 29.2 pg (27.0-33.0); MEAN CORPUSCULAR HGB CONC 33.1 g/dl (32.0-36.5); MEAN CORPUSCULAR VOLUME 88.3 fl (80.0-96.0); MONO # 0.4 K/mm3 (0.0-0.8); MONO % 6.3 % (0.0-5.0); NEUTROPHILS # 2.9 K/mm3 (1.8-7.7); NEUTROPHILS % 46.4 % (36.0-66.0); PLATELET COUNT, AUTOMATED 355 k/mm3 (150-450); WHITE BLOOD COUNT 6.3 K/mm3 (4.0-10.0)
[2016-08-24 06:44] LABS: ALBUMIN/GLOBULIN RATIO 0.88 (1.00-1.93); ALKALINE PHOSPHATASE 69 U/L (45-117); ALT/SGPT 66 U/L (12-78); ANION GAP 5 MEQ/L (8-16); AST/SGOT 37 U/L (15-37); BILIRUBIN,TOTAL 0.1 MG/DL (0.2-1.0); BLOOD UREA NITROGEN 8 MG/DL (7-18); CALCIUM LEVEL 8.6 MG/DL (8.5-10.1); CARBON DIOXIDE LEVEL 31 MEQ/L (21-32); CHLORIDE LEVEL 102 MEQ/L (98-107); CREATININE FOR GFR 0.65 MG/DL (0.55-1.02); GLOMERULAR FILTRATION RATE > 60.0 (>58); GLUCOSE, FASTING 132 MG/DL (70-105); POTASSIUM SERUM 4.5 MEQ/L (3.5-5.1); SODIUM LEVEL 138 MEQ/L (136-145); TOTAL PROTEIN 6.4 GM/DL (6.4-8.2)
[2016-08-24] MEDS: MIRALAX *UNIT DOSE* 17GM PACKET PO SCH (08:28)
[2016-08-24] MEDS: OMEGA-3 1050MG CAPSULE PO SCH (08:28)
[2016-08-24] MEDS: CYCLOBENZAPRINE 10 MG TAB PO SCH (08:28)
[2016-08-24] MEDS: PANTOPRAZOLE 40MG TAB (PROTONIX) PO SCH (08:28)
[2016-08-24] MEDS: ENOXAPARIN 40 MG/0.4 ML SYRINGE (J1650) SC SCH (08:28)
[2016-08-24] MEDS: ACYCLOVIR 200 MG CAPSULE PO SCH (08:29)
[2016-08-24] MEDS: SENOKOT S TAB PO SCH (08:29)
[2016-08-24] MEDS: diazePAM 5 MG TAB PO SCH (08:29)
[2016-08-24] MEDS: AZITHROMYCIN 250 MG TAB PO SCH (08:29)
[2016-08-24] MEDS: GABAPENTIN 300 MG CAP PO SCH (08:29)
[2016-08-24] MEDS: traMADol 50 MG TAB PO SCH (08:30)
[2016-08-24] MEDS: diphenhydrAMINE 25 MG CAP PO PRN (08:30)
[2016-08-24] MEDS: NORCO, ANEXSIA 5/325MG TABLET (HYDROcodone/ACETAMINOPHEN) PO PRN (08:30)
[2016-08-24] MEDS: GI COCKTAIL 50ML BTL(HYOSCYAMINE/MAALOX/LIDOCAINE VISCOUS)(1:3:1) PO PRN ×2 (08:31→12:07)
[2016-08-24] MEDS ORDERED: AZIT25TA PO (09:53)
[2016-08-24] MEDS ORDERED: AUGM875T27 PO (09:53)
--- NOTE | 2016-08-24 22:05 | ECHO ---
DATE OF PROCEDURE: 08/23/2016 AGE: 40 GENDER: Female HEIGHT: 68 inches WEIGHT: 230 pounds BODY SURFACE AREA: 2.17 m2 PATIENT LOCATION: Inpatient, [address] [place] [address], room 4224 REFERRING PHYSICIAN: Laura Pineda MD INDICATION: Edema. 2-D MEASUREMENTS: RV: 2.8 cm LV: 3.9 cm Septum: 1.2 cm Posterior wall: 1.2 cm Aortic root: 3.0 cm LA: 3.6 cm LVEF: 75% DOPPLER MEASUREMENTS: AV:1.7 m/s LVOT: 1.2 m/s LVOT diameter: 2.0 MV-E: 77, A: 79, EA ratio: 1.0 Early mitral deceleration time: 137 ms E prime: 8, A prime: 10, EE prime ratio: 9.6 PV: 0.8 m/s Pulmonary artery acceleration time: 88 ms PASP: 39 mmHg IVC: 1.5 m/s COMMENTS: Normal sinus rhythm/sinus tachycardia without interventricular conduction disturbance. Technically challenging study in light of the patient's body habitus, but diagnostically useful information was still obtained. Left atrial size was upper limits of normal. Normal left ventricular size. Right heart chamber sizes were also normal. LV wall thickness was upper limits of normal to mildly hypertrophied symmetrically. Normal right ventricular wall thickness. On real-time imaging from the parasternal and apical projections wall motion was symmetrical and hyperkinetic. Normal-appearing mitral valvular apparatus and leaflet excursion with no posterior systolic buckling. Three equal size aortic cusps of normal thickness and cusp separation. Normal aortic root size. No apparent intracardiac mass or pericardial effusion. Color flow Doppler study taken from the parasternal and apical projections showed trace to very mild tricuspid, but no mitral or aortic insufficiency. Her aortic valve showed a normal peak systolic velocity against LV outflow tract obstruction. Pulsed and continuous wave Doppler of her LV inflow tract taken from the apical four-chamber projection showed normal diastolic filling velocities and pattern against mitral stenosis. Her early mitral deceleration time was somewhat abbreviated and tissue Doppler of her mitral annulus also suggested a degree of impaired LV diastolic function, but current estimated mean left atrial pressure was within normal limits. Pulsed and continuous wave Doppler of her pulmonary trunk showed a normal peak systolic velocity against RV outflow tract obstruction. Pulmonary artery acceleration time was abbreviated consistent with an elevated pulmonary vascular resistance and mild pulmonary hypertension. We attempted to further estimate her right ventricular systolic pressure using guided continuous wave Doppler of her tricuspid valve, but could not get a clear spectral envelope. Her inferior vena cava was of normal size with normal respiratory collapse against an elevated central venous pressure. CONCLUSIONS: Technically difficult study. Borderline concentric left ventricle hypertrophy with hyperkinetic wall motion. Borderline left atrial enlargement with Doppler evidence of an impairment of LV diastolic function but currently normal estimated mean left atrial pressure. Normal right heart chamber sizes and wall motion with Doppler sign of mild pulmonary hypertension. Normal IVC size and collapse against an elevated central venous pressure.
--- NOTE | 2016-08-25 03:36 | DSES ---
DATE OF ADMISSION: 08/22/2016 DATE OF DISCHARGE: 08/24/2016 DISCHARGE DIAGNOSES: 1. Suspected pneumonia. 2. Chronic back pain. 3. Posttraumatic stress disorder (PTSD). 4. Borderline personality traits. 5. Suspected multiple sclerosis. 6. Dysuria. The following is a summary of her hospitalization: This is a 40-year-old who was discharged from the mental health unit, did not go home, went immediately to the emergency department as she was having multiple complaints including epigastric pain. She was admitted to the hospitalist service with suspected community-acquired pneumonia and during the remainder of her stay she had no upper respiratory complaints. She did have back pain and dysuria. There was concern that she may have been somatizing some of her complaints, was seen in consultation by psychiatry. Had workup to include a urinalysis, which was unremarkable and MRI of her back, which showed little change from previous MRI in 2007 and certainly no reason for worsening back pain. She was treated with antibiotics for a possible pneumonia even though she never had elevated white cell count or recorded fever. On the day of discharge, she is feeling well. Her focus has switched to symptomatic relief of her complaints and reassurance. Today, she feels ready to go home. She has a planned trip, which she would like to prepare for. On the day of discharge, temperature is 97.9, pulse 107, respiratory rate 16, blood pressure 121/55, 98% on room air. She is not tachycardic on my exam. Breathing is symmetrical and rested. I:E ration is 1:3. No wheezes, rales or rhonchi. Heart is in a regular rate and rhythm. Abdomen soft, doughy, nontender. White cell count 6.3, hemoglobin 13.2, creatinine 0.65. DISCHARGE INSTRUCTIONS: Are not available to me at this time based on [employer] down time, but basically include her home medication list with an additional few days of Augmentin to complete a course of treatment for possible community-acquired pneumonia. Plan to follow[facility] with [facility]
== END 2016-08-24 13:25 | disposition home or self-care (01) | DRG 195 ==
LOC: M ED 22:09 → M ED INP 08-22 00:15 → M MSPAV 08-22 12:29
PROVIDERS: ADMIT Internal Medicine Nephrology; ATTEND Internal Medicine
DX: J18.9 Pneumonia, unspecified organism (principal); M54.9 Dorsalgia, unspecified; F43.10 Post-traumatic stress disorder, unspecified; E78.5 Hyperlipidemia, unspecified; F41.9 Anxiety disorder, unspecified; E87.70 Fluid overload, unspecified; G35 Multiple sclerosis; R30.0 Dysuria; F60.3 Borderline personality disorder; Z91.5 Personal history of self-harm; Z96.0 Presence of urogenital implants; Z90.49 Acquired absence of other specified parts of digestive tract; Z79.899 Other long term (current) drug therapy; Z88.5 Allergy status to narcotic agent; Z88.8 Allergy status to other drugs, medicaments and biological substances

== ENCOUNTER → 2016-09-20 | Outpatient (REF) | payer OTHER ==
[~2016-09-20] MED LIST changes: +AUGM875T27 PO; +AZIT25TA PO; +BENA25CA4 PO; +BENA2CRE3 EXT; +FISH1000 PO; +PRENTAB9 PO; +VITA200016 PO; +VITATAB11 PO
== END ==
LOC: M SFHCWAGY 10:30
PROVIDERS: ATTEND Nurse Practitioner Women's Health
DX: Z12.4 Encounter for screening for malignant neoplasm of cervix (principal)
CPT/HCPCS: G0123; G0463

== ENCOUNTER → 2016-12-08 | Outpatient (CLI) | payer OTHER ==
[~2016-12-08] MED LIST changes: +ASPI81CH PO; -AUGM875T27 PO; +AUGM875T28 PO; +AZIT250T8 PO; -AZIT25TA PO; +BACL10TA2 PO; -COLA100C3 PO; +COLA100C5 PO; +KETO10TAB PO; -NAPR500T2 PO; +NAPR500T3 PO; -NORC10TA2 PO; +NORC10TA21 PO; +PERC5TAB12 PO; -PERC5TAB6 PO; +PRED20TA PO; +SERT-155 PO; +TRAZ50TA11 PO; -TRAZ50TA4 PO
--- NOTE | 2016-12-08 12:55 | REPMRS ---
Patient History The patient states she had a clinical breast exam in 11/2016. Family history of pancreatic cancer in father at age 50 or over. Digital Woman Screen Mammo: December 08, 2016 - Exam #: [id number] Bilateral CC and MLO view(s) were taken. Technologist: Mitzi Jesus, Technologist Prior study comparison: 2014, digital bilateral screening mammo, performed at [facility]. FINDINGS: There are scattered fibroglandular densities. There has been no change in the appearance of the mammogram from the prior studies. There is a mild amount of residual fibroglandular tissue which is fairly symmetric. There is no interval development of dominant mass, architectural distortion, or clustered microcalcification suggestive of malignancy. ASSESSMENT: BI-RADS/ACR category 1 mammogram. Negative. Recommendation Routine screening mammogram in 1 year (for women over age 40). This mammogram was interpreted with the aid of an FDA-approved computer-aided dectection system. Electronically Signed By: Long Morales MD 12/08/16 [id number]
--- NOTE | 2016-12-08 13:19 | REP ---
Pelvic ultrasound: Says performed with transabdominal balloon and endovaginal. The uterus is anteverted and upper normal size measuring 10.6 x 5.5 x 6.8 cm. The endometrium measures up to 11 mm and is. On the endovaginal transverse images there is a persistent defect in the midline of the endometrium in the sagittal plane extending for the length of the endometrium of uncertain significance. This could be a bicornuate or septate variation or could represent synechiae. The ovaries are normal size. Right ovary measures 2.3 x 1.1 x 1.6 cm. Left ovary measures 3.7 x 2.8 x 2.8 cm. There is a 2.6 cm simple cyst in the left ovary. There is no dominant mass or cyst in the right ovary. No free fluid in the pelvis. Impression: There is a midline longitudinal sagittally oriented defect throughout the endometrium of uncertain significance. This could be a septate or bicornuate variation or could represent synechiae. There is a 2.6 cm left ovarian simple cyst. Otherwise, negative pelvic ultrasound.
== END ==
LOC: M WHC 10:38
PROVIDERS: ATTEND Nurse Practitioner Women's Health
DX: Z12.31 Encounter for screening mammogram for malignant neoplasm of breast (principal); N92.1 Excessive and frequent menstruation with irregular cycle; N83.292 Other ovarian cyst, left side; Z12.4 Encounter for screening for malignant neoplasm of cervix; R87.619 Unspecified abnormal cytological findings in specimens from cervix uteri
CPT/HCPCS: 76830; 76856; G0123; G0202; G0463

== ENCOUNTER → 2016-12-08 | Outpatient (REF) | payer OTHER | LOC: M SFHCWAGY 11:57 | PROVIDERS: ATTEND Nurse Practitioner Women's Health | DX: Z12.4 Encounter for screening for malignant neoplasm of cervix (principal) ==

== ENCOUNTER 2017-01-11 09:03 | Emergency (ER) | payer MEDICARE, OTHER ==
[~2017-01-11] VITALS: Ht 172.7 cm; Wt 102.3 kg
[~2017-01-11 09:03] MED LIST changes: -ASPI81CH PO; -BACL10TA2 PO; -KETO10TAB PO; -PRED20TA PO; -SERT-155 PO
[2017-01-11] MEDS ORDERED: SERT-155 PO (09:14)
[2017-01-11] MEDS ORDERED: predniSONE 20 MG TAB PO ONE (09:45)
[2017-01-11] MEDS ORDERED: PERCOCET 5MG/325MG TAB PO ONE (09:45)
[2017-01-11] MEDS ORDERED: CYCLOBENZAPRINE 10 MG TAB PO ONE (09:45)
[2017-01-11] MEDS ORDERED: ONDANSETRON 4 MG ORAL DISINTEGRATING TAB (S0181) PO ONE (10:45)
[2017-01-11] MEDS ORDERED: PERC5TAB12 PO (11:34)
[2017-01-11] MEDS ORDERED: BACL10TA2 PO (11:34)
[2017-01-11] MEDS ORDERED: PRED20TA PO (11:36)
[2017-01-11 11:45] VITALS: BP 118/57
[2017-03-17] MEDS ORDERED: TRAM50TA2 PO (02:06)
[2017-03-17] MEDS ORDERED: KETO10TAB PO (02:39)
== END 2017-01-11 11:50 | disposition home or self-care (01) ==
LOC: M ED 09:03
DX: M54.5 Low back pain (principal); G89.29 Other chronic pain; R11.0 Nausea; R42 Dizziness and giddiness; R53.83 Other fatigue; F31.9 Bipolar disorder, unspecified; F41.9 Anxiety disorder, unspecified; Z91.5 Personal history of self-harm; F43.10 Post-traumatic stress disorder, unspecified; Z87.891 Personal history of nicotine dependence; Z88.8 Allergy status to other drugs, medicaments and biological substances; Z88.5 Allergy status to narcotic agent; Z79.899 Other long term (current) drug therapy

== ENCOUNTER → 2017-01-30 | Outpatient (REF) | payer MEDICARE ==
[~2017-01-30] MED LIST changes: +ASPI81CH PO; +BACL10TA2 PO; +KETO10TAB PO; +PRED20TA PO; +SERT-155 PO
== END ==
LOC: M LAB REF 08:50
PROVIDERS: ATTEND Physician Assistant Medical
DX: N39.0 Urinary tract infection, site not specified (principal)

== ENCOUNTER 2017-02-28 19:11 | Emergency (ER) | payer MEDICARE, OTHER ==
[~2017-02-28] VITALS: Ht 172.7 cm; Wt 102.3 kg
[~2017-02-28 19:11] MED LIST changes: -ASPI81CH PO; -KETO10TAB PO
[2017-02-28] MEDS ORDERED: ASPI81CH PO (19:25)
[2017-02-28] MEDS ORDERED: ASPIRIN 81 MG CHEW TABLET PO ONE (19:45)
[2017-02-28] MEDS ORDERED: GI COCKTAIL 50ML BTL(HYOSCYAMINE/MAALOX/LIDOCAINE VISCOUS)(1:3:1) PO ONE (19:45)
[2017-02-28 20:07] LABS: BASO # 0.1 10^3/uL (0.0-0.2); BASO % 0.7 % (0.0-1.0); EOS # 0.2 10^3/uL (0.0-0.50); EOS % 2.5 % (0.0-3.0); IMMATURE GRANULOCYTE % 0.3 % (0-0); LYMPH # 3.7 10^3/uL (1.5-4.5); LYMPH % 38.8 % (24.0-44.0); MEAN CORPUSCULAR HEMOGLOBIN 29.1 pg (27.0-33.0); MEAN CORPUSCULAR HGB CONC 33.4 g/dl (32.0-36.5); MEAN CORPUSCULAR VOLUME 87.2 fl (80.0-96.0); MONO # 0.6 10^3/uL (0.0-0.8); MONO % 5.9 % (0.0-5.0); NEUTROPHILS % 51.8 % (36.0-66.0); PLATELET COUNT, AUTOMATED 375 10^3/uL (150-450); RED CELL DISTRIBUTION WIDTH 13.1 % (11.5-14.5); WHITE BLOOD COUNT 9.6 10^3/uL (4.0-10.0)
[2017-02-28 20:21] LABS: ANION GAP 7 MEQ/L (8-16); BLOOD UREA NITROGEN 13 MG/DL (7-18); CARBON DIOXIDE LEVEL 27 MEQ/L (21-32); CHLORIDE LEVEL 105 MEQ/L (98-107); CREATININE FOR GFR 0.83 MG/DL (0.55-1.02); GLOMERULAR FILTRATION RATE > 60.0 (>58); GLUCOSE, FASTING 112 MG/DL (70-105); POTASSIUM SERUM 3.9 MEQ/L (3.5-5.1); SODIUM LEVEL 139 MEQ/L (136-145)
[2017-02-28 20:27] LABS: ALBUMIN 3.8 GM/DL (3.2-5.2); ALBUMIN/GLOBULIN RATIO 1.03 (1.00-1.93); ALKALINE PHOSPHATASE 74 U/L (45-117); ALT/SGPT 20 U/L (12-78); AST/SGOT 9 U/L (15-37); BILIRUBIN,DIRECT < 0.1 MG/DL (0.0-0.2); BILIRUBIN,TOTAL 0.2 MG/DL (0.2-1.0); TOTAL PROTEIN 7.5 GM/DL (6.4-8.2)
[2017-02-28] MEDS ORDERED: PERCOCET 5MG/325MG TAB PO ONE (20:30)
[2017-02-28] MEDS ORDERED: CYCLOBENZAPRINE 5MG TABLET PO ONE (23:00)
[2017-03-01] MEDS ORDERED: ISOVUE-370 76% 100ML VIAL (Q9967) As Ordered ONE (00:37)
--- NOTE | 2017-03-01 01:08 | REP ---
Clinical: Chest pain . Comparison: 10/10/2015 . Technique: PA and lateral. Findings: The mediastinum and cardiac silhouette are normal. The lung smart are clear and without acute consolidation, effusion, or pneumothorax. The skeletal structures are intact and normal. Impression: 1. No acute cardiopulmonary process. Signed by Sloan Delvalle MD 03/01/2017 12:59 A
[2017-03-01 01:26] VITALS: BP 128/73
--- NOTE | 2017-03-01 02:10 | REPUSA ---
CLINICAL HISTORY: Pain, exclude PE. TECHNIQUE: Multiple incremental axial, coronal and oblique images are obtained from the thoracic inle t to the upper abdomen. Intravenous contrast material was administered as per pulmonary embolism prot ocol. COMMENTS: Comparison to prior exam on 08/21/2016. Minimal bilateral basilar dependent atelectatic pulmonary changes. No residual pneumonic consolidation in the right upper lobe. There is excellent opacification of pulmonary arterial system without evidence for pulmonary embolism . Aorta is of normal caliber without evidence for dissection or aneurysm. There is no evidence of pleural or parenchymal mass. There are no pleural effusions. There is no evid ence of hilar or mediastinal lymphadenopathy. The heart and great vessels are within normal limits. Images of the upper abdomen demonstrate no evidence of adrenal mass. The bony structures are free of lytic or blastic lesions. Multilevel degenerative changes are seen in volving the visualized thoracolumbar spine. Scattered calcifications are seen involving the aorta and major branches compatible with atherosclero sis. IMPRESSION: No evidence for pulmonary embolism. Resolution of right upper lobe airspace disease. Minimal bilateral basilar dependent atelectatic pulmonary changes. Thank you for your kind referral of this patient.
--- NOTE | 2017-03-01 07:09 | ECGEPIP ---
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
[2017-03-17] MEDS ORDERED: TRAM50TA2 PO (02:06)
[2017-03-17] MEDS ORDERED: KETO10TAB PO (02:39)
== END 2017-03-01 02:27 | disposition home or self-care (01) ==
LOC: M ED 19:11
DX: R07.9 Chest pain, unspecified (principal); F31.9 Bipolar disorder, unspecified; Z79.52 Long term (current) use of systemic steroids; Z79.899 Other long term (current) drug therapy; Z79.82 Long term (current) use of aspirin; Z88.8 Allergy status to other drugs, medicaments and biological substances; Z88.5 Allergy status to narcotic agent
CPT/HCPCS: 36415; 71020; 71275; 80048; 80076; 81001; 82550; 82553; 83690; 84484; 85025; 93005; 93041; 94760; 99285; Q9967

== ENCOUNTER → 2017-06-08 | Outpatient (REF) | payer MEDICARE, MEDICAID ==
[2017-06-12 00:07] LABS: EBV VIRAL CAPSID AG IgM <36.0 U/mL (0.0-35.9)
[2017-06-12 00:07] LABS: EBV VIRAL CAPSID AG IgG >600.0 U/mL (0.0-17.9)
== END ==
LOC: M LAB REF 15:41
DX: J03.90 Acute tonsillitis, unspecified (principal); B27.90 Infectious mononucleosis, unspecified without complication
CPT/HCPCS: 86665

== ENCOUNTER → 2017-06-08 | Outpatient (REF) | payer MEDICARE, MEDICAID | LOC: M LAB REF 14:23 | DX: J02.0 Streptococcal pharyngitis (principal) ==

== ENCOUNTER 2017-07-12 16:14 | Emergency (ER) | payer MEDICARE, MEDICAID ==
[2017-07-12] MEDS: ONDANSETRON 4 MG ORAL DISINTEGRATING TAB (S0181) PO ×2 (23:15)
[2017-07-12] MEDS: KETOROLAC 60 MG/2 ML VIAL (J1885) IM (23:15)
== END 2017-07-12 23:53 | disposition home or self-care (01) ==
LOC: M ED 16:14
DX: G43.909 Migraine, unspecified, not intractable, without status migrainosus (principal); Z87.820 Personal history of traumatic brain injury; F41.9 Anxiety disorder, unspecified; F32.9 Major depressive disorder, single episode, unspecified; M54.2 Cervicalgia; M54.5 Low back pain; Z87.891 Personal history of nicotine dependence; Z79.82 Long term (current) use of aspirin; Z79.899 Other long term (current) drug therapy; Z88.8 Allergy status to other drugs, medicaments and biological substances; Z88.5 Allergy status to narcotic agent
CPT/HCPCS: J1885

== ENCOUNTER 2017-09-24 16:10 | Emergency (ER) | payer MEDICARE, MEDICAID ==
[2017-09-24] MEDS: ASPIRIN 81 MG CHEW TABLET PO (17:18)
[2017-09-24] MEDS: NS 1,000 ML IV (17:18)
[2017-09-24 17:35] LABS: BASO # 0.1 10^3/uL (0.0-0.2); BASO % 0.7 % (0.0-1.0); EOS # 0.1 10^3/uL (0.0-0.50); EOS % 1.2 % (0.0-3.0); HEMATOCRIT 42.5 % (36.0-47.0); HEMOGLOBIN 14.3 g/dl (12.0-15.5); IMMATURE GRANULOCYTE % 0.3 % (0-3.0); LYMPH # 3.1 10^3/uL (1.5-4.5); LYMPH % 34.2 % (24.0-44.0); MEAN CORPUSCULAR HEMOGLOBIN 29.5 pg (27.0-33.0); MEAN CORPUSCULAR HGB CONC 33.6 g/dl (32.0-36.5); MEAN CORPUSCULAR VOLUME 87.8 fl (80.0-96.0); MONO # 0.6 10^3/uL (0.0-0.8); MONO % 6.9 % (0.0-5.0); NEUTROPHILS # 5.1 10^3/uL (1.8-7.7); NEUTROPHILS % 56.7 % (36.0-66.0); PLATELET COUNT, AUTOMATED 362 10^3/uL (150-450); RED BLOOD COUNT 4.84 10^6/uL (4.00-5.40); RED CELL DISTRIBUTION WIDTH 12.4 % (11.5-14.5)
[2017-09-24 17:45] LABS: INR 0.87; PROTHROMBIN TIME 11.9 SECONDS (12.4-14.5)
[2017-09-24 17:48] LABS: D-DIMER QUANT 342.2 ng/ml (<500)
[2017-09-24 17:50] LABS: ABG BASE EXCESS -1.5 (-2.0-2.0); ABG HCO3 20.3 MEQ/L (22.0-26.0); ABG O2 SATURATION 99.5 % (95.0-99.0); ABG PARTIAL PRESSURE CO2 27.1 mmHg (35.0-45.0); ABG STANDARD HCO3 23.3 MEQ/L (22.0-26.0); ABG TOTAL CO2 21.1 MEQ/L (22.0-29.0); ABG pH (ARTERIAL) 7.492 UNITS (7.350-7.450)
[2017-09-24 17:53] LABS: ABG PARTIAL PRESSURE O2 156.1 mmHg (75.0-100.0)
[2017-09-24 18:04] LABS: ALBUMIN 3.8 GM/DL (3.2-5.2); ALBUMIN/GLOBULIN RATIO 1.09 (1.00-1.93); ALKALINE PHOSPHATASE 92 U/L (45-117); ALT/SGPT 24 U/L (12-78); ANION GAP 7 MEQ/L (8-16); AST/SGOT 16 U/L (7-37); BILIRUBIN,DIRECT < 0.1 MG/DL (0.0-0.2); BILIRUBIN,TOTAL 0.2 MG/DL (0.2-1.0); BLOOD UREA NITROGEN 10 MG/DL (7-18); CALCIUM LEVEL 8.6 MG/DL (8.5-10.1); CARBON DIOXIDE LEVEL 27 MEQ/L (21-32); CHLORIDE LEVEL 107 MEQ/L (98-107); CPK CREATINE PHOSPHOKINASE 49 U/L (26-192); GLOMERULAR FILTRATION RATE > 60.0 (>58); GLUCOSE, FASTING 114 MG/DL (70-100); POTASSIUM SERUM 3.9 MEQ/L (3.5-5.1); SODIUM LEVEL 141 MEQ/L (136-145); TOTAL PROTEIN 7.3 GM/DL (6.4-8.2); TROPONIN I < 0.02 NG/ML (< 0.10)
[2017-09-24 18:06] LABS: CK-MB VALUE MASS < 1.0 NG/ML (<3.6); MB/CK RELATIVE INDEX 2.04 (< OR =4); NT-PRO BNP 8 PG/ML (<125)
== END 2017-09-24 19:23 | disposition home or self-care (01) ==
LOC: M ED 16:10
DX: R06.02 Shortness of breath (principal); R07.9 Chest pain, unspecified; R53.82 Chronic fatigue, unspecified; Z82.49 Family history of ischemic heart disease and other diseases of the circulatory system; Z79.899 Other long term (current) drug therapy; Z79.82 Long term (current) use of aspirin; Z88.5 Allergy status to narcotic agent; Z88.8 Allergy status to other drugs, medicaments and biological substances; Z87.891 Personal history of nicotine dependence
CPT/HCPCS: 71045

== ENCOUNTER 2017-09-30 09:59 | Emergency (ER) | payer MEDICARE, MEDICAID ==
[2017-09-30] MEDS: KETOROLAC 30 MG/ML VIAL (J1885) IV (10:29)
[2017-09-30 10:50] LABS: BASO % 0.6 % (0.0-1.0); EOS # 0.1 10^3/uL (0.0-0.50); HEMATOCRIT 42.7 % (36.0-47.0); HEMOGLOBIN 14.4 g/dl (12.0-15.5); IMMATURE GRANULOCYTE % 0.4 % (0-3.0); LYMPH # 2.5 10^3/uL (1.5-4.5); LYMPH % 35.7 % (24.0-44.0); MEAN CORPUSCULAR HEMOGLOBIN 29.6 pg (27.0-33.0); MEAN CORPUSCULAR HGB CONC 33.7 g/dl (32.0-36.5); MEAN CORPUSCULAR VOLUME 87.7 fl (80.0-96.0); MONO # 0.4 10^3/uL (0.0-0.8); MONO % 6.3 % (0.0-5.0); NEUTROPHILS # 3.8 10^3/uL (1.8-7.7); PLATELET COUNT, AUTOMATED 356 10^3/uL (150-450); RED BLOOD COUNT 4.87 10^6/uL (4.00-5.40); RED CELL DISTRIBUTION WIDTH 12.5 % (11.5-14.5)
[2017-09-30 11:10] LABS: CONTROL LINE HCG INT CTR LINE PRESENT; HCG, SERUM QUALITATIVE NEGATIVE (NEGATIVE)
[2017-09-30] MEDS ORDERED: ISOVUE-370 76% 100ML VIAL (Q9967) As Ordered (11:17)
[2017-09-30 11:18] LABS: ALBUMIN 3.7 GM/DL (3.2-5.2); ALBUMIN/GLOBULIN RATIO 1.16 (1.00-1.93); ALKALINE PHOSPHATASE 78 U/L (45-117); ALT/SGPT 19 U/L (12-78); ANION GAP 9 MEQ/L (8-16); AST/SGOT 11 U/L (7-37); BILIRUBIN,DIRECT < 0.1 MG/DL (0.0-0.2); BILIRUBIN,TOTAL 0.3 MG/DL (0.2-1.0); BLOOD UREA NITROGEN 8 MG/DL (7-18); CALCIUM LEVEL 8.4 MG/DL (8.5-10.1); CARBON DIOXIDE LEVEL 26 MEQ/L (21-32); CHLORIDE LEVEL 108 MEQ/L (98-107); CPK CREATINE PHOSPHOKINASE 48 U/L (26-192); CREATININE FOR GFR 0.62 MG/DL (0.55-1.30); GLOMERULAR FILTRATION RATE > 60.0 (>58); GLUCOSE, FASTING 117 MG/DL (70-100); LIPASE 205 U/L (73-393); POTASSIUM SERUM 3.8 MEQ/L (3.5-5.1); SODIUM LEVEL 143 MEQ/L (136-145); TOTAL PROTEIN 6.9 GM/DL (6.4-8.2); TROPONIN I < 0.02 NG/ML (< 0.10)
[2017-09-30 11:23] LABS: CK-MB VALUE MASS < 1.0 NG/ML (<3.6); MB/CK RELATIVE INDEX 2.08 (< OR =4)
[2017-09-30] MEDS: GI COCKTAIL 50ML BTL(HYOSCYAMINE/MAALOX/LIDOCAINE VISCOUS)(1:3:1) PO (11:57)
[2017-09-30] MEDS ORDERED: LORazepam 2 MG/ML VIAL (J2060) IV (13:13)
[2017-09-30] MEDS: LORazepam 2 MG/ML VIAL (J2060) IV (13:33)
== END 2017-09-30 15:34 | disposition home or self-care (01) ==
LOC: M ED 09:59
DX: R07.9 Chest pain, unspecified (principal); F31.9 Bipolar disorder, unspecified; Z82.49 Family history of ischemic heart disease and other diseases of the circulatory system; Z79.899 Other long term (current) drug therapy; Z79.82 Long term (current) use of aspirin; Z88.5 Allergy status to narcotic agent; Z88.8 Allergy status to other drugs, medicaments and biological substances
CPT/HCPCS: Q9967

== ENCOUNTER 2017-10-03 13:30 | Emergency (ER) | payer MEDICARE, MEDICAID ==
[2017-10-03] MEDS: LORazepam 2 MG/ML VIAL (J2060) IV (14:35)
[2017-10-03] MEDS: NS 1,000 ML IV (14:35)
[2017-10-03] MEDS: ASPIRIN 81 MG CHEW TABLET PO (14:45)
[2017-10-03 14:52] LABS: BASO # 0.1 10^3/uL (0.0-0.2); BASO % 0.5 % (0.0-1.0); EOS # 0.1 10^3/uL (0.0-0.50); HEMATOCRIT 42.5 % (36.0-47.0); HEMOGLOBIN 14.5 g/dl (12.0-15.5); IMMATURE GRANULOCYTE % 0.5 % (0-3.0); LYMPH # 2.5 10^3/uL (1.5-4.5); LYMPH % 24.6 % (24.0-44.0); MEAN CORPUSCULAR HEMOGLOBIN 29.4 pg (27.0-33.0); MEAN CORPUSCULAR HGB CONC 34.1 g/dl (32.0-36.5); MEAN CORPUSCULAR VOLUME 86.2 fl (80.0-96.0); MONO # 0.5 10^3/uL (0.0-0.8); MONO % 5.3 % (0.0-5.0); NEUTROPHILS # 6.8 10^3/uL (1.8-7.7); NEUTROPHILS % 68.1 % (36.0-66.0); PLATELET COUNT, AUTOMATED 351 10^3/uL (150-450); RED BLOOD COUNT 4.93 10^6/uL (4.00-5.40); RED CELL DISTRIBUTION WIDTH 12.4 % (11.5-14.5)
[2017-10-03 15:01] LABS: VENOUS BASE EXCESS 1.8 (-2.0-2.0); VENOUS HCO3 24.3 MEQ/L (23.0-27.0); VENOUS O2 SATURATION 83.5 % (60.0-80.0); VENOUS PARTIAL PRESSURE CO2 32.3 mmHg (38.0-50.0); VENOUS PARTIAL PRESSURE O2 40.7 mmHg (30.0-50.0); VENOUS PH 7.494 UNITS (7.330-7.430); VENOUS STANDARD HCO3 25.7 MEQ/L; VENOUS TOTAL CO2 25.3 MEQ/L (24.0-28.0)
[2017-10-03 15:03] LABS: INR 0.95; PROTHROMBIN TIME 12.8 SECONDS (12.4-14.5)
[2017-10-03 15:25] LABS: ALBUMIN 3.9 GM/DL (3.2-5.2); ALBUMIN/GLOBULIN RATIO 1.15 (1.00-1.93); ALKALINE PHOSPHATASE 83 U/L (45-117); ALT/SGPT 18 U/L (12-78); ANION GAP 8 MEQ/L (8-16); AST/SGOT 14 U/L (7-37); BILIRUBIN,DIRECT 0.2 MG/DL (0.0-0.2); BILIRUBIN,TOTAL 0.4 MG/DL (0.2-1.0); BLOOD UREA NITROGEN 9 MG/DL (7-18); CARBON DIOXIDE LEVEL 26 MEQ/L (21-32); CHLORIDE LEVEL 107 MEQ/L (98-107); CPK CREATINE PHOSPHOKINASE 44 U/L (26-192); CREATININE FOR GFR 0.61 MG/DL (0.55-1.30); GLOMERULAR FILTRATION RATE > 60.0 (>58); GLUCOSE, FASTING 91 MG/DL (70-100); POTASSIUM SERUM 4.2 MEQ/L (3.5-5.1); SODIUM LEVEL 141 MEQ/L (136-145); TOTAL PROTEIN 7.3 GM/DL (6.4-8.2); TROPONIN I < 0.02 NG/ML (< 0.10)
[2017-10-03 15:30] LABS: CK-MB VALUE MASS < 1.0 NG/ML (<3.6); MB/CK RELATIVE INDEX 2.27 (< OR =4)
== END 2017-10-03 16:10 | disposition home or self-care (01) ==
LOC: M ED 13:30
DX: R07.89 Other chest pain (principal); F41.9 Anxiety disorder, unspecified; F43.10 Post-traumatic stress disorder, unspecified; Z87.891 Personal history of nicotine dependence; Z98.890 Other specified postprocedural states; Z82.49 Family history of ischemic heart disease and other diseases of the circulatory system; Z88.8 Allergy status to other drugs, medicaments and biological substances; Z88.5 Allergy status to narcotic agent
CPT/HCPCS: J2060

== ENCOUNTER 2017-12-10 09:46 | Emergency (ER) | payer MEDICARE, MEDICAID, OTHER ==
[2017-12-10] MEDS: predniSONE 20 MG TAB PO (10:57)
[2017-12-10] MEDS: KETOROLAC 60 MG/2 ML VIAL (J1885) IM (10:58)
[2017-12-10 11:02] LABS: BASO % 0.6 % (0.0-1.0); EOS # 0.2 10^3/uL (0.0-0.50); EOS % 2.6 % (0.0-3.0); HEMATOCRIT 46.2 % (36.0-47.0); HEMOGLOBIN 15.1 g/dl (12.0-15.5); IMMATURE GRANULOCYTE % 0.1 % (0-3.0); LYMPH # 2.4 10^3/uL (1.5-4.5); LYMPH % 34.7 % (24.0-44.0); MEAN CORPUSCULAR HEMOGLOBIN 29.2 pg (27.0-33.0); MEAN CORPUSCULAR HGB CONC 32.7 g/dl (32.0-36.5); MEAN CORPUSCULAR VOLUME 89.4 fl (80.0-96.0); MONO # 0.5 10^3/uL (0.0-0.8); MONO % 7.4 % (0.0-5.0); NEUTROPHILS # 3.8 10^3/uL (1.8-7.7); NEUTROPHILS % 54.6 % (36.0-66.0); PLATELET COUNT, AUTOMATED 375 10^3/uL (150-450); RED BLOOD COUNT 5.17 10^6/uL (4.00-5.40); RED CELL DISTRIBUTION WIDTH 12.5 % (11.5-14.5); WHITE BLOOD COUNT 6.9 10^3/uL (4.0-10.0)
[2017-12-10 11:21] LABS: ANION GAP 6 MEQ/L (8-16); BLOOD UREA NITROGEN 11 MG/DL (7-18); CALCIUM LEVEL 9.1 MG/DL (8.5-10.1); CARBON DIOXIDE LEVEL 29 MEQ/L (21-32); CHLORIDE LEVEL 106 MEQ/L (98-107); CREATININE FOR GFR 0.61 MG/DL (0.55-1.30); GLOMERULAR FILTRATION RATE > 60.0 (>58); GLUCOSE, FASTING 89 MG/DL (70-100); POTASSIUM SERUM 4.4 MEQ/L (3.5-5.1); SODIUM LEVEL 141 MEQ/L (136-145)
[2017-12-12 00:14] LABS: Lyme Disease IgG/IgM Antibodie <0.91 ISR (0.00-0.90); Lyme Disease IgM Ab Quantitati <0.80 index (0.00-0.79)
== END 2017-12-10 11:46 | disposition home or self-care (01) ==
LOC: M ED 09:46
DX: M25.50 Pain in unspecified joint (principal); I50.9 Heart failure, unspecified; K21.9 Gastro-esophageal reflux disease without esophagitis; R53.82 Chronic fatigue, unspecified; F32.9 Major depressive disorder, single episode, unspecified; F43.10 Post-traumatic stress disorder, unspecified; F41.9 Anxiety disorder, unspecified; Z87.442 Personal history of urinary calculi; Z98.890 Other specified postprocedural states; Z88.5 Allergy status to narcotic agent; Z88.8 Allergy status to other drugs, medicaments and biological substances; Z79.82 Long term (current) use of aspirin; Z79.899 Other long term (current) drug therapy; Z12.31 Encounter for screening mammogram for malignant neoplasm of breast
CPT/HCPCS: J1885

== ENCOUNTER → 2017-12-10 | Outpatient (CLI) | payer OTHER | LOC: M WHC 09:02 | DX: Z12.31 Encounter for screening mammogram for malignant neoplasm of breast (principal) ==

== ENCOUNTER 2017-12-12 17:34 | Emergency (ER) | payer MEDICARE, MEDICAID ==
[2017-12-12] MEDS: NS 1,000 ML IV (20:16)
[2017-12-12] MEDS: KETOROLAC 30 MG/ML VIAL (J1885) IV (20:17)
[2017-12-12] MEDS: ONDANSETRON 4MG/2ML VIAL (J2405) IV (20:17)
[2017-12-12] MEDS: diphenhydrAMINE INJ 50MG/ML VIAL (J1200) IV (20:17)
[2017-12-12 21:21] LABS: BASO % 0.2 % (0.0-1.0); HEMATOCRIT 46.2 % (36.0-47.0); HEMOGLOBIN 15.3 g/dl (12.0-15.5); IMMATURE GRANULOCYTE % 0.5 % (0-3.0); LYMPH # 2.1 10^3/uL (1.5-4.5); LYMPH % 14.9 % (24.0-44.0); MEAN CORPUSCULAR HEMOGLOBIN 28.9 pg (27.0-33.0); MEAN CORPUSCULAR HGB CONC 33.1 g/dl (32.0-36.5); MEAN CORPUSCULAR VOLUME 87.3 fl (80.0-96.0); MONO # 0.4 10^3/uL (0.0-0.8); MONO % 2.8 % (0.0-5.0); NEUTROPHILS # 11.6 10^3/uL (1.8-7.7); NEUTROPHILS % 81.6 % (36.0-66.0); PLATELET COUNT, AUTOMATED 405 10^3/uL (150-450); RED BLOOD COUNT 5.29 10^6/uL (4.00-5.40); RED CELL DISTRIBUTION WIDTH 12.2 % (11.5-14.5); WHITE BLOOD COUNT 14.2 10^3/uL (4.0-10.0)
[2017-12-12 21:28] LABS: KETONE, URINE AUTO RFX NEGATIVE (NEGATIVE); LEUKOCYTE ESTERASE UR AUTO RFX NEGATIVE (NEGATIVE); NITRITE, URINE AUTO RFX NEGATIVE (NEGATIVE); RBC, URINE AUTO RFX 3 /HPF (0-3); SPECIFIC GRAVITY UR AUTO RFX 1.003 (1.002-1.035); SQUAM EPITHELIAL CELL UR AURFX 0 /HPF (0-6); WBC, URINE AUTO RFX 0 /HPF (0-3)
[2017-12-12 21:40] LABS: AMPHETAMINES LEVEL URINE NEGATIVE (NEGATIVE); BARBITURATES URINE NEGATIVE (NEGATIVE); BENZODIAZEPINES URINE POSITIVE (NEGATIVE); CANNABINOIDS URINE NEGATIVE (NEGATIVE); COCAINE METABOLITE URINE NEGATIVE (NEGATIVE); METHADONE URINE NEGATIVE (NEGATIVE); OPIATES URINE NEGATIVE (NEGATIVE); PHENCYCLIDINE URINE NEGATIVE (NEGATIVE)
[2017-12-12 21:49] LABS: ANION GAP 8 MEQ/L (8-16); BLOOD UREA NITROGEN 7 MG/DL (7-18); CALCIUM LEVEL 9.2 MG/DL (8.5-10.1); CARBON DIOXIDE LEVEL 27 MEQ/L (21-32); CHLORIDE LEVEL 104 MEQ/L (98-107); CREATININE FOR GFR 0.45 MG/DL (0.55-1.30); FREE T4 0.89 NG/DL (0.76-1.46); GLOMERULAR FILTRATION RATE > 60.0 (>58); GLUCOSE, FASTING 97 MG/DL (70-100); MAGNESIUM LEVEL 1.9 MG/DL (1.8-2.4); SODIUM LEVEL 139 MEQ/L (136-145); THYROID STIMULATING HORMONE 0.782 uIU/ML (0.358-3.740)
[2017-12-14 14:24] LABS: BEDSIDE GLUCOSE 118 MG/DL (70-105)
== END 2017-12-12 22:27 | disposition home or self-care (01) ==
LOC: M ED 17:34
DX: R51 Headache (principal); I50.9 Heart failure, unspecified; K21.9 Gastro-esophageal reflux disease without esophagitis; M54.9 Dorsalgia, unspecified; F41.9 Anxiety disorder, unspecified; F32.9 Major depressive disorder, single episode, unspecified; R53.82 Chronic fatigue, unspecified; Z87.442 Personal history of urinary calculi; Z79.82 Long term (current) use of aspirin; Z79.899 Other long term (current) drug therapy; Z88.5 Allergy status to narcotic agent; Z88.8 Allergy status to other drugs, medicaments and biological substances
CPT/HCPCS: J1200

== ENCOUNTER 2018-04-24 10:34 | Emergency (ER) | payer OTHER, MEDICARE, MEDICAID ==
[2018-04-24] MEDS: KETOROLAC 30 MG/ML VIAL (J1885) IM (12:15)
[2018-04-24] MEDS: diphenhydrAMINE 25 MG CAP PO (13:10)
[2018-04-24] MEDS: NORCO, ANEXSIA 5/325MG TABLET (HYDROcodone/ACETAMINOPHEN) PO (13:11)
== END 2018-04-24 13:22 | disposition home or self-care (01) ==
LOC: M ED 10:34
DX: M54.6 Pain in thoracic spine (principal); M25.552 Pain in left hip; Z79.899 Other long term (current) drug therapy; Z79.82 Long term (current) use of aspirin; Z88.5 Allergy status to narcotic agent; Z88.8 Allergy status to other drugs, medicaments and biological substances
CPT/HCPCS: J1885

== ENCOUNTER 2018-12-06 13:28 | Emergency (ER) | payer MEDICARE ==
[~2018-12-06] VITALS: Ht 172.7 cm; Wt 117.7 kg
[~2018-12-06 13:28] MED LIST changes: -/LAMO10TA OR; -/QUET10TA OR; +ACYC1CAP20 PO; -ACYC200CA PO; +ASPI81CH49 PO; +AZIT-10 PO; -AZIT250T8 PO; -GABA-282 PO; +GABA-843 PO; -GABA600T PO; +GABA600T4 PO; +HYDR200T3 PO; +IBUP-1022 PO; +KETO10TAB PO; +LAMI1TAB7 OR; -LAMO150T PO; +LAMO150T2 PO; +LAMO25TA4; +NAPR-885 PO; -NAPR500T3 PO; +NEUR300C PO; -NORC10TA21 PO; +NORC1TAB5 PO; +SERO1TAB OR; +TRAZ-252 PO; -TRAZ50TA11 PO; +ZOFR4TAB14 PO
[2018-12-06 15:08] LABS: BASO # 0.1 10^3/uL (0.0-0.2); BASO % 0.6 % (0.0-1.0); EOS # 0.2 10^3/uL (0.0-0.50); EOS % 2.4 % (0.0-3.0); HEMATOCRIT 40.2 % (36.0-47.0); HEMOGLOBIN 13.1 g/dl (12.0-15.5); LYMPH # 3.1 10^3/uL (1.5-4.5); LYMPH % 37.6 % (24.0-44.0); MEAN CORPUSCULAR HEMOGLOBIN 28.6 pg (27.0-33.0); MEAN CORPUSCULAR HGB CONC 32.6 g/dl (32.0-36.5); MEAN CORPUSCULAR VOLUME 87.8 fl (80.0-96.0); MONO # 0.8 10^3/uL (0.0-0.8); MONO % 9.5 % (0.0-5.0); NEUTROPHILS % 49.4 % (36.0-66.0); PLATELET COUNT, AUTOMATED 389 10^3/uL (150-450); RED BLOOD COUNT 4.58 10^6/uL (4.00-5.40); WHITE BLOOD COUNT 8.2 10^3/uL (4.0-10.0)
[2018-12-06 15:17] LABS: BLOOD UREA NITROGEN 11 MG/DL (7-18); CALCIUM LEVEL 8.9 MG/DL (8.5-10.1); CARBON DIOXIDE LEVEL 30 MEQ/L (21-32); CHLORIDE LEVEL 105 MEQ/L (98-107); CREATININE FOR GFR 0.64 MG/DL (0.55-1.30); GLOMERULAR FILTRATION RATE > 60.0 (>58); GLUCOSE, FASTING 88 MG/DL (70-100); NT-PRO BNP 17 PG/ML (<125); POTASSIUM SERUM 4.4 MEQ/L (3.5-5.1); SODIUM LEVEL 140 MEQ/L (136-145)
[2018-12-06 15:54] LABS: C REACTIVE PROTEIN QUANTITATIV 0.47 MG/DL (0.00-0.30)
[2018-12-06 16:09] LABS: APPEARANCE, URINE CLEAR (CLEAR); BACTERIA, URINE AUTO NEGATIVE (NEGATIVE); BILIRUBIN, URINE AUTO NEGATIVE (NEGATIVE); BLOOD, URINE BLOOD NEGATIVE (NEGATIVE); COLOR, URINE STRAW (YELLOW); GLUCOSE, URINE (UA) AUTO NEGATIVE (NEGATIVE); KETONE, URINE AUTO NEGATIVE (NEGATIVE); LEUKOCYTE ESTERASE, URINE AUTO NEGATIVE (NEGATIVE); NITRITE, URINE AUTO NEGATIVE (NEGATIVE); PROTEIN, URINE AUTO NEGATIVE (NEGATIVE); RBC, URINE AUTO 1 /HPF (0-3); SPECIFIC GRAVITY URINE AUTO 1.013 (1.002-1.035); SQUAMOUS EPITHELIAL CELL UR AU 0 /HPF (0-6); UROBILINOGEN, URINE AUTO 0.2 mg/dL (0.0-2.0); WBC, URINE AUTO 1 /HPF (0-3)
[2018-12-06 16:16] LABS: ERYTHROCYTE SEDIMENTATION RATE 10 mm/hr (0-20)
[2018-12-06] MEDS ORDERED: KETOROLAC 30 MG/ML VIAL (J1885) IV ONE (16:45)
--- NOTE | 2018-12-06 17:37 | REPVR ---
EXAM: US Duplex Bilateral Lower Extremity Veins EXAM DATE/TIME: 12/06/2018 5:23 PM CLINICAL HISTORY: 43 years old, female; Swelling (edema) of limb; Lower extremity, bilateral; Additional info: Bilateral lower extremity TECHNIQUE: Imaging protocol: Real-time duplex ultrasound of the Bilateral Lower Extremities with 2-D pearce scale, color Doppler flow and spectral waveform analysis with image documentation. Complete exam focused on the bilateral lower extremity veins. COMPARISON: US Duplex, Ext LOWER veins, bilat 08/21/2016 10:40 PM FINDINGS: Right deep veins: Unremarkable. The common femoral, femoral, proximal profunda femoral and popliteal veins are patent without thrombus. Normal Doppler waveforms. Normal compressibility and/or augmentation response. Right superficial veins: Saphenofemoral junction is patent without thrombus. Left deep veins: Unremarkable. The common femoral, femoral, proximal profunda femoral and popliteal veins are patent without thrombus. Normal Doppler waveforms. Normal compressibility and/or augmentation response. Left superficial veins: Saphenofemoral junction is patent without thrombus. Soft tissues: Unremarkable. IMPRESSION: No sonographic evidence of deep vein thrombosis. Electronically signed by: Selwyn Null On 12/06/2018 17:36:53 PM
[2018-12-06 17:54] VITALS: BP 129/66
[2018-12-06] MEDS ORDERED: TRUFMIS MC (18:28)
== END 2018-12-06 18:41 | disposition home or self-care (01) ==
LOC: M ED 13:28
DX: R60.0 Localized edema (principal); M32.9 Systemic lupus erythematosus, unspecified; I50.9 Heart failure, unspecified; K21.9 Gastro-esophageal reflux disease without esophagitis; Z79.899 Other long term (current) drug therapy; Z79.82 Long term (current) use of aspirin; Z88.5 Allergy status to narcotic agent; Z88.8 Allergy status to other drugs, medicaments and biological substances
CPT/HCPCS: 80048; 81001; 83880; 85025; 85379; 85652; 86140; 93970; 96374; 99284; J1885

== ENCOUNTER → 2018-12-20 | Outpatient (REF) | payer MEDICARE ==
[~2018-12-20] MED LIST changes: +TRUFMIS MC
[2018-12-20 12:54] LABS: BASO # 0.1 10^3/uL (0.0-0.2); BASO % 0.7 % (0.0-1.0); EOS # 0.2 10^3/uL (0.0-0.50); EOS % 2.4 % (0.0-3.0); HEMATOCRIT 45.4 % (36.0-47.0); HEMOGLOBIN 14.6 g/dl (12.0-15.5); LYMPH # 2.5 10^3/uL (1.5-4.5); LYMPH % 30.4 % (24.0-44.0); MEAN CORPUSCULAR HEMOGLOBIN 28.2 pg (27.0-33.0); MEAN CORPUSCULAR HGB CONC 32.2 g/dl (32.0-36.5); MEAN CORPUSCULAR VOLUME 87.8 fl (80.0-96.0); MONO # 0.5 10^3/uL (0.0-0.8); MONO % 5.7 % (0.0-5.0); PLATELET COUNT, AUTOMATED 342 10^3/uL (150-450); RED BLOOD COUNT 5.17 10^6/uL (4.00-5.40); WHITE BLOOD COUNT 8.3 10^3/uL (4.0-10.0)
[2018-12-20 13:27] LABS: ALBUMIN 3.7 GM/DL (3.2-5.2); ALT/SGPT 24 U/L (12-78); BILIRUBIN,TOTAL 0.2 MG/DL (0.2-1.0); BLOOD UREA NITROGEN 12 MG/DL (7-18); CALCIUM LEVEL 8.5 MG/DL (8.5-10.1); CARBON DIOXIDE LEVEL 27 MEQ/L (21-32); CHLORIDE LEVEL 107 MEQ/L (98-107); CREATININE FOR GFR 0.59 MG/DL (0.55-1.30); GLOMERULAR FILTRATION RATE > 60.0 (>58); GLUCOSE, FASTING 102 MG/DL (70-100); POTASSIUM SERUM 4.1 MEQ/L (3.5-5.1); SODIUM LEVEL 140 MEQ/L (136-145)
[2018-12-20 13:28] LABS: HEMOGLOBIN A1c 5.9 %
== END ==
LOC: M LAB REF 12:07
PROVIDERS: ATTEND Physician Assistant
DX: R53.83 Other fatigue (principal)

== ENCOUNTER 2019-01-02 14:57 | Emergency (ER) | payer MEDICARE, MEDICAID ==
[~2019-01-02] VITALS: Ht 172.7 cm; Wt 111.9 kg
[2019-01-02 16:05] LABS: BASO # 0.1 10^3/uL (0.0-0.2); BASO % 0.8 % (0.0-1.0); EOS # 0.1 10^3/uL (0.0-0.50); HEMATOCRIT 46.1 % (36.0-47.0); HEMOGLOBIN 15.2 g/dl (12.0-15.5); LYMPH # 2.4 10^3/uL (1.5-4.5); LYMPH % 26.2 % (24.0-44.0); MEAN CORPUSCULAR HEMOGLOBIN 28.9 pg (27.0-33.0); MEAN CORPUSCULAR VOLUME 87.6 fl (80.0-96.0); MONO # 0.6 10^3/uL (0.0-0.8); MONO % 6.8 % (0.0-5.0); NEUTROPHILS % 64.8 % (36.0-66.0); PLATELET COUNT, AUTOMATED 389 10^3/uL (150-450); RED BLOOD COUNT 5.26 10^6/uL (4.00-5.40); WHITE BLOOD COUNT 9.2 10^3/uL (4.0-10.0)
[2019-01-02] MEDS ORDERED: PRED5PAK PO (16:10)
[2019-01-02 16:42] LABS: INR 0.95; PROTHROMBIN TIME 12.4 SECONDS (11.8-14.0)
[2019-01-02 16:53] LABS: ALBUMIN 3.9 GM/DL (3.2-5.2); ALT/SGPT 15 U/L (12-78); BILIRUBIN,TOTAL 0.3 MG/DL (0.2-1.0); BLOOD UREA NITROGEN 13 MG/DL (7-18); CALCIUM LEVEL 9.1 MG/DL (8.5-10.1); CARBON DIOXIDE LEVEL 27 MEQ/L (21-32); CHLORIDE LEVEL 105 MEQ/L (98-107); CK-MB VALUE MASS < 1.0 NG/ML (<3.6); CPK CREATINE PHOSPHOKINASE 45 U/L (26-192); CREATININE FOR GFR 0.73 MG/DL (0.55-1.30); GLOMERULAR FILTRATION RATE > 60.0 (>58); GLUCOSE, FASTING 118 MG/DL (70-100); LIPASE 185 U/L (73-393); MB/CK RELATIVE INDEX 2.22 (< OR =4); POTASSIUM SERUM 3.7 MEQ/L (3.5-5.1); SODIUM LEVEL 138 MEQ/L (136-145); TROPONIN I < 0.02 NG/ML (< 0.10)
--- NOTE | 2019-01-02 16:59 | REP ---
HISTORY: Chest pain. COMPARISON: 10/03/2017 The technique utilized in obtaining the radiograph has magnified the cardiac silhouette and accentuated the interstitial markings. The superior mediastinal structures are midline. The cardiac silhouette is unremarkable in size, shape, and position. The diaphragmatic surfaces of the lungs are regular, and the costophrenic angles are clear. The pulmonary smart are clear. The imaged osseous structures are intact. IMPRESSION: There is no acute cardiopulmonary disease. Electronically Signed by Rogelio Beverly DO 01/02/2019 06:15 P
[2019-01-02] MEDS ORDERED: ISOVUE-370 76% 100ML VIAL (Q9967) As Ordered ONE (17:14)
--- NOTE | 2019-01-02 17:42 | REPVR ---
EXAM: CT Angiography Chest With Contrast EXAM DATE/TIME: 01/02/2019 5:18 PM CLINICAL HISTORY: 43 years old, female; Shortness of breath; Additional info: Cp, SOB, prolonged air travel, eval for pe TECHNIQUE: Imaging protocol: Axial computed tomographic angiography images of the chest with intravenous contrast using CT angiography protocol. 3D rendering: MIP reconstructed images were created and reviewed. Radiation optimization: All CT scans at this facility use at least one of these dose optimization techniques: automated exposure control; mA and/or kV adjustment per patient size (includes targeted exams where dose is matched to clinical indication); or iterative reconstruction. Contrast material: ISOVUE 370; Contrast volume: 100 ml; Contrast route: IV; COMPARISON: CT ANGIO CHEST 09/30/2017 11:25 AM FINDINGS: Pulmonary arteries: There are no pulmonary emboli. Aorta: There is no aortic dissection or aneurysm. Lungs: Calcified left upper lobe granuloma. Pleural space: Unremarkable. No pneumothorax. No pleural effusion. Heart: Unremarkable. No cardiomegaly. No pericardial effusion. Gallbladder and bile ducts: There has been a cholecystectomy. Lymph nodes: Calcified left suprahilar and left mediastinal lymph nodes. Bones/joints: Unremarkable. No acute fracture. Soft tissues: Unremarkable. IMPRESSION: 1. There has been a cholecystectomy. 2. There is no aortic dissection or aneurysm. 3. There are no pulmonary emboli. 4. No acute pulmonary parenchymal findings. 5. Intrathoracic findings consistent with remote granulomatous infection. Electronically signed by: Rosalino De La Rosa On 01/02/2019 17:42:30 PM
[2019-01-02 18:15] VITALS: BP 127/72
--- NOTE | 2019-01-03 05:17 | ECGEPIP ---
[facility] - ED Test Date: 2019-01-02 Pat Name: KIM BUCIO Department: Room: - Gender: Female Hem Marker: NAIMA : 1975 Requested By: SHAMAR Li Order Number: [id number] Reading MD: Ruddy Garcia Measurements Intervals [place] Rate: 90 P: 47 AK: 166 QRS: 61 QRSD: 106 T: 0 QT: 346 QTc: 425 Interpretive Statements SINUS RHYTHM NONSPECIFIC T-WAVE ABNORMALITY SIMILAR TO 10/03/17 Electronically Signed on 01-03-2019 5:17:33 EDT by Ruddy Garcia
== END 2019-01-02 18:32 | disposition home or self-care (01) ==
LOC: M ED 14:57
DX: R07.89 Other chest pain (principal); R06.02 Shortness of breath; K21.9 Gastro-esophageal reflux disease without esophagitis; F31.9 Bipolar disorder, unspecified; F43.10 Post-traumatic stress disorder, unspecified; Z79.899 Other long term (current) drug therapy; Z79.82 Long term (current) use of aspirin; Z88.5 Allergy status to narcotic agent; Z88.8 Allergy status to other drugs, medicaments and biological substances; Z87.891 Personal history of nicotine dependence
CPT/HCPCS: 36415; 71045; 71275; 80053; 82550; 82553; 83690; 84443; 84484; 85025; 85610; 93005; 93041; 94760; 99285; Q9967

== ENCOUNTER 2019-06-17 15:02 | Emergency (ER) | payer MEDICARE, MEDICAID ==
[~2019-06-17] VITALS: Ht 172.7 cm; Wt 117.0 kg
[~2019-06-17 15:02] MED LIST changes: -LAMO150T2 PO; +LAMO150T3 PO; +PRED5PAK PO; -SERT-155 PO; +SERT50TA29 PO
[2019-06-17] MEDS ORDERED: KETOROLAC 30 MG/ML VIAL (J1885) IV ONE (17:45)
[2019-06-17] MEDS ORDERED: ONDANSETRON 4MG/2ML VIAL (J2405) IV ONE (17:45)
[2019-06-17] MEDS ORDERED: NS 1,000 ML IV ONE (17:45)
[2019-06-17 17:54] LABS: BASO # 0.1 10^3/uL (0.0-0.2); BASO % 0.4 % (0.0-1.0); EOS # 0.2 10^3/uL (0.0-0.5); EOS % 1.4 % (0.0-3.0); HEMATOCRIT 45.9 % (36.0-47.0); LYMPH % 25.5 % (24.0-44.0); MEAN CORPUSCULAR HEMOGLOBIN 26.6 pg (27.0-33.0); MEAN CORPUSCULAR HGB CONC 30.5 g/dl (32.0-36.5); MEAN CORPUSCULAR VOLUME 87.3 fl (80.0-96.0); MONO # 0.7 10^3/uL (0.0-0.8); MONO % 6.2 % (0.0-5.0); NEUTROPHILS # 7.8 10^3/uL (1.5-8.5); NEUTROPHILS % 65.9 % (36.0-66.0); PLATELET COUNT, AUTOMATED 372 10^3/uL (150-450); RED BLOOD COUNT 5.26 10^6/uL (4.00-5.40); WHITE BLOOD COUNT 11.8 10^3/uL (4.0-10.0)
[2019-06-17 18:11] LABS: HCG, SERUM QUALITATIVE NEGATIVE (NEGATIVE)
[2019-06-17 18:12] LABS: ALT/SGPT 18 U/L (12-78); BILIRUBIN,DIRECT < 0.1 MG/DL (0.0-0.2); BILIRUBIN,TOTAL 0.2 MG/DL (0.2-1.0); BLOOD UREA NITROGEN 13 MG/DL (7-18); CALCIUM LEVEL 8.8 MG/DL (8.5-10.1); CARBON DIOXIDE LEVEL 29 MEQ/L (21-32); CHLORIDE LEVEL 100 MEQ/L (98-107); CREATININE FOR GFR 0.66 MG/DL (0.55-1.30); GLOMERULAR FILTRATION RATE > 60.0 (>58); GLUCOSE, FASTING 90 MG/DL (70-100); LIPASE 153 U/L (73-393); POTASSIUM SERUM 4.2 MEQ/L (3.5-5.1); SODIUM LEVEL 135 MEQ/L (136-145); TOTAL PROTEIN 7.5 GM/DL (6.4-8.2)
--- NOTE | 2019-06-17 18:33 | REPVR ---
PROCEDURE INFORMATION: Exam: CT Abdomen And Pelvis Without Contrast Exam date and time: 06/17/2019 5:39 PM Age: 43 years old Clinical indication: Abdominal pain; Additional info: L flank pain TECHNIQUE: Imaging protocol: Computed tomography of the abdomen and pelvis without contrast. Radiation optimization: All CT scans at this facility use at least one of these dose optimization techniques: automated exposure control; mA and/or kV adjustment per patient size (includes targeted exams where dose is matched to clinical indication); or iterative reconstruction. COMPARISON: CT ABD PELVIS W/O CONTRAST 10/15/2015 8:37 PM FINDINGS: Liver: Normal. No mass. Gallbladder and bile ducts: There has been a cholecystectomy. Pancreas: Normal. No ductal dilation. Spleen: The spleen demonstrates punctate calcifications, consistent with remote granulomatous organism exposure. Adrenals: Normal. No mass. Kidneys and ureters: Normal. No hydronephrosis. Stomach and bowel: There is increased feces throughout the colon consistent with constipation. Appendix: No evidence of appendicitis. Intraperitoneal space: Unremarkable. No free air. No significant fluid collection. Vasculature: Unremarkable. No abdominal aortic aneurysm. Lymph nodes: Unremarkable. No enlarged lymph nodes. Bladder: Unremarkable as visualized. Reproductive: Low-attenuation foci in the cervix may represent nabothian cysts. Bones/joints: Unremarkable. No acute fracture. Soft tissues: Unremarkable. IMPRESSION: 1. There has been a cholecystectomy. 2. There is increased feces throughout the colon consistent with constipation. 3. No acute findings. Electronically signed by: Rosalino De La Rosa On 06/17/2019 18:33:06 PM
[2019-06-17] MEDS ORDERED: fentaNYL 100 MCG/2 ML INJECTION (J3010) IV ONE (19:00)
--- NOTE | 2019-06-17 21:03 | REPVR ---
PROCEDURE INFORMATION: Exam: US Pelvis Complete, Transabdominal and US Pelvis, Transvaginal Exam date and time: 06/17/2019 8:50 PM Age: 43 years old Clinical indication: Pelvic pain; Additional info: L pelvic pain eval for cyst/torsion TECHNIQUE: Imaging protocol: Real-time transabdominal and transvaginal pelvic ultrasound (complete) with image documentation. Transvaginal imaging was used for better evaluation of the endometrium and adnexa. COMPARISON: PELVIS NON-OB COMPLETE US 12/08/2016 10:44 AM FINDINGS: Uterus/cervix: Uterus measures 12.7 x 6.5 x 8 cm. 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 Further evaluation suggested. Right adnexa: Right ovary measures 4.4 x 3 x 3.8 cm. Volume 26 cc. Normal flow. Left adnexa: Left ovary measures 4.3 x 2.6 x 4 cm. Volume 23 cc. Left ovarian follicle measures 2.2 x 1.8 x 2.4 cm. Free fluid: None. Bladder: Normal. 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 Further evaluation suggested. Electronically signed by: Rosalion De La Rosa On 06/17/2019 21:03:35 PM
[2019-06-17 22:27] VITALS: BP 128/82
--- NOTE | 2019-06-18 10:53 | ED PDOC ---
Post-Departure Follow-Up inderjit powell faxed formal report of pelvic us for fu Erik Hernandez MD Jun 18, 2019 10:53
== END 2019-06-17 22:28 | disposition home or self-care (01) ==
LOC: M ED 15:02
DX: M54.5 Low back pain (principal); K59.00 Constipation, unspecified; Q51.3 Bicornate uterus; M32.9 Systemic lupus erythematosus, unspecified; Z87.442 Personal history of urinary calculi; Z88.8 Allergy status to other drugs, medicaments and biological substances; Z88.5 Allergy status to narcotic agent; Z79.899 Other long term (current) drug therapy; Z79.82 Long term (current) use of aspirin
CPT/HCPCS: 74176; 76830; 76856; 80048; 80076; 81001; 83690; 84703; 85025; 93976; 96361; 96374; 96375; 99284; J1885; J2405; J3010

== ENCOUNTER 2019-07-08 11:10 | Emergency (ER) | payer MEDICARE, MEDICAID ==
[~2019-07-08] VITALS: Ht 172.7 cm; Wt 122.7 kg
[2019-07-08] MEDS ORDERED: MELO15TA28 PO (11:19)
[2019-07-08] MEDS ORDERED: diclofenac gel (11:19)
[2019-07-08] MEDS ORDERED: diazePAM 10 MG/2 ML INJ (J3360) IM ONE (12:45)
[2019-07-08] MEDS ORDERED: KETOROLAC 60 MG/2 ML VIAL (J1885) IM ONE (13:00)
[2019-07-08 14:03] VITALS: BP 152/85
== END 2019-07-08 14:18 | disposition home or self-care (01) ==
LOC: M ED 11:10
DX: M54.17 Radiculopathy, lumbosacral region (principal); G89.29 Other chronic pain; Z88.8 Allergy status to other drugs, medicaments and biological substances; Z88.5 Allergy status to narcotic agent; Z79.899 Other long term (current) drug therapy; Z79.82 Long term (current) use of aspirin
CPT/HCPCS: 81001; 96372; 99283; J1885; J3360

== ENCOUNTER → 2019-08-19 | Outpatient (CLI) | payer MEDICARE, MEDICAID ==
[~2019-08-19] MED LIST changes: +MELO15TA28 PO; +diclofenac gel
--- NOTE | 2019-08-19 18:24 | REP ---
HISTORY: Trauma. COMPARISON: None. FINDINGS: No acute fracture or destructive osseous lesion. Electronically Signed by Rogelio Beverly DO 08/19/2019 07:31 P
--- NOTE | 2019-08-19 18:25 | REP ---
HISTORY: Trauma. FINDINGS: No acute fracture or destructive osseous lesion. Electronically Signed by Rogelio Beverly DO 08/19/2019 07:31 P
--- NOTE | 2019-08-19 18:25 | REP ---
HISTORY: Trauma. FINDINGS: The joint spaces are symmetric and relatively well maintained. There is no evidence of acute fracture or destructive osseous lesion. IMPRESSION: Negative. Electronically Signed by Rogelio Beverly DO 08/19/2019 07:30 P
== END ==
LOC: M WUC 17:34
PROVIDERS: ATTEND Physician Assistant
DX: S50.12XA Contusion of left forearm, initial encounter (principal); S60.212A Contusion of left wrist, initial encounter; S60.222A Contusion of left hand, initial encounter; X58.XXXA Exposure to other specified factors, initial encounter; Y92.89 Other specified places as the place of occurrence of the external cause

== ENCOUNTER 2019-08-24 10:12 | Emergency (ER) | payer MEDICARE, MEDICAID ==
[~2019-08-24] VITALS: Ht 175.3 cm; Wt 123.8 kg
[~2019-08-24 10:12] MED LIST changes: +CYCL-707 PO; -CYCL10TA PO
[2019-08-24] MEDS ORDERED: IBUPROFEN 400 MG TAB PO ONE (10:30)
[2019-08-24] MEDS ORDERED: ACETAMINOPHEN TAB 650MG DOSE (2X325MG) PO ONE (10:30)
[2019-08-24] MEDS ORDERED: NORC1TAB7 PO (11:06)
[2019-08-24] MEDS ORDERED: IBUP-1114 PO (11:10)
[2019-08-24] MEDS ORDERED: NORCO 5/325MG TABLET (BULK FOR ED) PO ONE (11:15)
[2019-08-24 11:17] VITALS: BP 121/58
--- NOTE | 2019-08-24 12:12 | REP ---
KNEE: REASON: Pain. FINDINGS: The compartments are symmetric and relatively well maintained. There is no acute fracture or destructive osseous lesion. Electronically Signed by Rogelio Beverly DO 08/24/2019 12:32 P
--- NOTE | 2019-08-24 12:13 | REP ---
REASON: Pain. FINDINGS: No acute fracture or destructive osseous lesion. Electronically Signed by Rogelio Beverly DO 08/24/2019 12:32 P
== END 2019-08-24 11:35 | disposition home or self-care (01) ==
LOC: M ED 10:12
DX: S86.112A Strain of other muscle(s) and tendon(s) of posterior muscle group at lower leg level, left leg, initial encounter (principal); W01.0XXA Fall on same level from slipping, tripping and stumbling without subsequent striking against object, initial encounter; Y92.410 Unspecified street and highway as the place of occurrence of the external cause; Y93.K1 Activity, walking an animal; Y99.8 Other external cause status; I50.9 Heart failure, unspecified; M32.9 Systemic lupus erythematosus, unspecified; K21.9 Gastro-esophageal reflux disease without esophagitis; F41.9 Anxiety disorder, unspecified; F32.9 Major depressive disorder, single episode, unspecified; Z91.5 Personal history of self-harm; Z87.442 Personal history of urinary calculi; Z87.440 Personal history of urinary (tract) infections; Z88.8 Allergy status to other drugs, medicaments and biological substances; Z88.5 Allergy status to narcotic agent; Z79.899 Other long term (current) drug therapy; Z79.82 Long term (current) use of aspirin; Z79.52 Long term (current) use of systemic steroids

== ENCOUNTER 2020-01-13 01:13 | Emergency (ER) | payer MEDICARE, MEDICAID ==
[~2020-01-13] VITALS: Ht 172.7 cm; Wt 127.5 kg
[~2020-01-13 01:13] MED LIST changes: +IBUP-1114 PO; +NORC1TAB7 PO
[2020-01-13] MEDS ORDERED: DOXY100C PO (02:33)
[2020-01-13] MEDS ORDERED: NORCO 5/325MG TABLET (BULK FOR ED) PO ONE (02:45)
[2020-01-13] MEDS ORDERED: DOXYCYCLINE HYCLATE 100MG TABLET PO ONE (02:45)
[2020-01-13] MEDS ORDERED: KETOROLAC 60MG 2ML VIAL IM ONE (03:00)
[2020-01-13 03:18] VITALS: BP 127/87
== END 2020-01-13 03:19 | disposition home or self-care (01) ==
LOC: M ED 01:13
DX: L03.113 Cellulitis of right upper limb (principal); M32.9 Systemic lupus erythematosus, unspecified; Z88.5 Allergy status to narcotic agent; Z88.8 Allergy status to other drugs, medicaments and biological substances; Z79.899 Other long term (current) drug therapy; Z79.891 Long term (current) use of opiate analgesic; Z79.52 Long term (current) use of systemic steroids
CPT/HCPCS: 96372; 99283; J1885

== ENCOUNTER 2020-01-17 11:40 | Emergency (ER) | payer OTHER, MEDICARE, MEDICAID ==
[~2020-01-17] VITALS: Ht 172.7 cm; Wt 127.3 kg
[~2020-01-17 11:40] MED LIST changes: +DOXY100C PO
--- NOTE | 2020-01-17 12:04 | REPVR ---
PROCEDURE INFORMATION: Exam: XR Chest, 1 View Exam date and time: 01/17/2020 11:52 AM Age: 44 years old Clinical indication: Other: Cp; Additional info: Chest pain TECHNIQUE: Imaging protocol: XR of the chest Views: 1 view. COMPARISON: CR PORTABLE CHEST X-RAY 01/02/2019 4:01 PM FINDINGS: Lungs: A small calcified granuloma is present in the left mid lung. The lungs are otherwise clear. Pleural space: Unremarkable. No pleural effusion. No pneumothorax. Heart/Mediastinum: Unremarkable. No cardiomegaly. Bones/joints: Unremarkable. IMPRESSION: No evidence for acute pulmonary disease. Electronically signed by: Selwyn Tillman On 01/17/2020 12:04:09 PM
[2020-01-17] MEDS ORDERED: diazePAM 5 MG TAB PO ONE (12:15)
[2020-01-17 12:17] LABS: BASO % 0.5 % (0.0-1.0); EOS # 0.2 10^3/uL (0.0-0.5); EOS % 4.3 % (0.0-3.0); HEMATOCRIT 38.2 % (36.0-47.0); HEMOGLOBIN 11.8 g/dl (12.0-15.5); LYMPH # 2.2 10^3/uL (1.5-5.0); LYMPH % 39.9 % (24.0-44.0); MEAN CORPUSCULAR HGB CONC 30.9 g/dl (32.0-36.5); MEAN CORPUSCULAR VOLUME 84.3 fl (80.0-96.0); MONO # 0.5 10^3/uL (0.0-0.8); MONO % 8.3 % (0.0-5.0); NEUTROPHILS # 2.6 10^3/uL (1.5-8.5); NEUTROPHILS % 46.6 % (36.0-66.0); PLATELET COUNT, AUTOMATED 340 10^3/uL (150-450); RED BLOOD COUNT 4.53 10^6/uL (4.00-5.40); WHITE BLOOD COUNT 5.6 10^3/uL (4.0-10.0)
[2020-01-17 12:27] LABS: INR 0.89; PROTHROMBIN TIME 12.2 SECONDS (11.8-14.0)
[2020-01-17 12:30] LABS: D-DIMER QUANT 519.73 ng/ml (<500)
[2020-01-17 12:53] LABS: ALBUMIN 3.3 GM/DL (3.2-5.2); ALT/SGPT 74 U/L (12-78); BILIRUBIN,DIRECT < 0.1 MG/DL (0.0-0.2); BILIRUBIN,TOTAL 0.2 MG/DL (0.2-1.0); CK-MB VALUE MASS < 1.0 NG/ML (<3.6); CPK CREATINE PHOSPHOKINASE 61 U/L (26-192); LIPASE 194 U/L (73-393); MB/CK RELATIVE INDEX 1.64 (< OR =4); NT-PRO BNP 84 PG/ML (<125); TOTAL PROTEIN 6.5 GM/DL (6.4-8.2); TROPONIN I < 0.02 NG/ML (< 0.10)
[2020-01-17] MEDS ORDERED: ISOVUE-370 76% 100ML VIAL As Ordered ONE (13:33)
[2020-01-17] MEDS ORDERED: MORPHINE 2 MG/ML 1ML VIAL (J2270) IV ONE (14:00)
--- NOTE | 2020-01-17 14:22 | REPVR ---
PROCEDURE INFORMATION: Exam: CT Angiography Chest With Contrast Exam date and time: 01/17/2020 2:00 PM Age: 44 years old Clinical indication: Abnormal findings; Other: Elevated dimer; Additional info: SOB; Elevated dimer; R/O pe TECHNIQUE: Imaging protocol: Computed tomographic angiography of the chest with intravenous contrast. 3D rendering (Not supervised by radiologist): MIP and/or 3D reconstructed images were created by the technologist. Radiation optimization: All CT scans at this facility use at least one of these dose optimization techniques: automated exposure control; mA and/or kV adjustment per patient size (includes targeted exams where dose is matched to clinical indication); or iterative reconstruction. Contrast material: ISOVUE 370; Contrast volume: 75 ml; Contrast route: INTRAVENOUS (IV); COMPARISON: CT ANGIO CHEST 01/02/2019 5:16 PM FINDINGS: Pulmonary arteries: No pulmonary embolus is identified. Aorta: The thoracic aorta is nonaneurysmal. Lungs: The lungs demonstrate mild dependent predominant patchy ground-glass opacities. There is no significant airspace consolidation. Pleural space: Unremarkable. No pneumothorax. No pleural effusion. Heart: Unremarkable. No cardiomegaly. No pericardial effusion. Lymph nodes: Subcentimeter short axis mediastinal and bilateral hilar lymph nodes are present, without pathologic lymphadenopathy identified. Gallbladder and bile ducts: Cholecystectomy clips are again present. Bones/joints: Mild degenerative changes again involve the spine. Soft tissues: Unremarkable. IMPRESSION: 1. No pulmonary embolus identified. 2. Mild dependent predominant patchy ground-glass opacities, could reflect microatelectasis, edema or pneumonitis. Such imaging features can be seen with COVID-19 pneumonia, though are nonspecific and can occur with a variety of infectious and noninfectious processes. Electronically signed by: Selwyn Tillman On 01/17/2020 14:21:45 PM
[2020-01-17] MEDS ORDERED: GI COCKTAIL 50ML BTL(HYOSCYAMINE/MAALOX/LIDOCAINE VISCOUS)(1:3:1) PO ONE (15:30)
[2020-01-17 16:32] LABS: ERYTHROCYTE SEDIMENTATION RATE 13 mm/hr (0-20)
[2020-01-17] MEDS ORDERED: KETOROLAC 30 MG/ML 1ML VIAL IV ONE (17:15)
[2020-01-17 17:26] LABS: CK-MB VALUE MASS < 1.0 NG/ML (<3.6); CPK CREATINE PHOSPHOKINASE 54 U/L (26-192); MB/CK RELATIVE INDEX 1.85 (< OR =4); TROPONIN I < 0.02 NG/ML (< 0.10)
[2020-01-17 18:18] VITALS: BP 155/78
--- NOTE | 2020-01-26 10:35 | ECGEPIP ---
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
--- NOTE | 2020-01-26 10:51 | ECGEPIP ---
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 SEE SCANNED DOWNTIME REPORT
== END 2020-01-17 18:20 | disposition home or self-care (01) ==
LOC: M ED 11:40
DX: R07.89 Other chest pain (principal); R60.0 Localized edema; I50.9 Heart failure, unspecified; R06.02 Shortness of breath; K21.9 Gastro-esophageal reflux disease without esophagitis; F32.9 Major depressive disorder, single episode, unspecified; F43.10 Post-traumatic stress disorder, unspecified; Z87.440 Personal history of urinary (tract) infections; Z88.8 Allergy status to other drugs, medicaments and biological substances; Z88.5 Allergy status to narcotic agent; Z79.2 Long term (current) use of antibiotics; Z79.82 Long term (current) use of aspirin; Z79.52 Long term (current) use of systemic steroids
CPT/HCPCS: 36415; 71045; 71275; 80047; 80076; 82550; 82553; 83690; 83880; 84443; 84484; 85025; 85379; 85610; 85652; 93005; 93041; 94760; 96374; 96375; 99285; J1885; J2270; Q9967; U0002

== ENCOUNTER 2020-06-08 21:06 | Emergency (ER) | payer MEDICARE, MEDICAID ==
[~2020-06-08] VITALS: Ht 172.7 cm; Wt 123.3 kg
[~2020-06-08 21:06] MED LIST changes: +GABA-282 PO; -GABA-843 PO
--- OUTSIDE RECORDS SUMMARY | 2020-06-08 21:20 | CCD ---
Author Author [facility] Organization [facility] Address Unknown Phone Unavailable Care Team Providers Care Electrocardiograph Operator Name Role Phone BREANNA, E CASS MANAGER FORMS Unavailable Unavailable BREANNA, E CASS MANAGER FORMS Unavailable Unavailable BREANNA, E CASS MANAGER FORMS Unavailable Unavailable BREANNA, E CASS MANAGER FORMS Unavailable Unavailable BREANNA, E CASS MANAGER FORMS Unavailable Unavailable BREANNA, E CASS MANAGER FORMS Unavailable Unavailable BREANNA, E CASS MANAGER FORMS Unavailable Unavailable BREANNA, E CASS MANAGER FORMS Unavailable Unavailable BREANNA, E CASS MANAGER FORMS Unavailable Unavailable BREANNA, E CASS MANAGER FORMS Unavailable Unavailable BREANNA, E CASS MANAGER FORMS Unavailable Unavailable BREANNA, E CASS MANAGER FORMS Unavailable Unavailable BREANNA, E CASS MANAGER FORMS Unavailable Unavailable BREANNA, E CASS MANAGER FORMS Unavailable Unavailable BREANNA, E CASS MANAGER FORMS Unavailable Unavailable BREANNA, E CASS MANAGER FORMS Unavailable Unavailable BREANNA, E CASS MANAGER FORMS Unavailable Unavailable BREANNA, E CASS MANAGER FORMS Unavailable Unavailable BREANNA, E CASS MANAGER FORMS Unavailable Unavailable BREANNA, E CASS MANAGER FORMS Unavailable Unavailable BREANNA, E CASS MANAGER FORMS Unavailable Unavailable BREANNA, E CASS MANAGER FORMS Unavailable Unavailable BREANNA, E CASS MANAGER FORMS Unavailable Unavailable BREANNA, E CASS MANAGER FORMS Unavailable Unavailable BREANNA, E CASS MANAGER FORMS Unavailable Unavailable BREANNA, E CASS MANAGER FORMS Unavailable Unavailable BREANNA, E CASS MANAGER FORMS Unavailable Unavailable BREANNA, E CASS MANAGER FORMS Unavailable Unavailable BREANNA, E CASS MANAGER FORMS Unavailable Unavailable BREANNA, E CASS MANAGER FORMS Unavailable Unavailable BASSEM A JENNIFER JACOBSON Unavailable Unavailable Brook LUEVANO Unavailable Unavailable Brook LUEVANO Unavailable Unavailable Brook LUEVANO PA Unavailable Unavailable LETTIERE, A JENNIFER PA Unavailable Unavailable LETTIERE, A JENNIFER PA Unavailable Unavailable LETTIERE, A JENNIFER PA Unavailable Unavailable LETTIERE, A JENNIFER PA Unavailable Unavailable LETTIERE, A JENNIFER PA Unavailable Unavailable LETTIERE, A JENNIFER PA Unavailable Unavailable LETTIERE, A JENNIFER PA Unavailable Unavailable LETTIERE, A JENNIFER PA Unavailable Unavailable LETTIERE, A JENNIFER PA Unavailable Unavailable LETTIERE, A JENNIFER PA Unavailable Unavailable LETTIERE, A JENNIFER PA Unavailable Unavailable LETTIERE, A JENNIFER PA Unavailable Unavailable LETTIERE, A JENNIFER PA Unavailable Unavailable LETTIERE, A JENNIFER PA Unavailable Unavailable LETTIERE, A JENNIFER PA Unavailable Unavailable LETTIERE, A JENNIFER PA Unavailable Unavailable LETTIERE, A JENNIFER PA Unavailable Unavailable LETTIERE, A JENNIFER PA Unavailable Unavailable LETTIERE, A JENNIFER PA Unavailable Unavailable LETTIERE, A JENNIFER PA Unavailable Unavailable LETTIERE, A JENNIFER PA Unavailable Unavailable LETTIERE, A JENNIFER PA Unavailable Unavailable LETTIERE, A JENNIFER PA Unavailable Unavailable LETTIERE, A JENNIFER PA Unavailable Unavailable LETTIERE, A JENNIFER PA Unavailable Unavailable Re-disclosure Warning The records that you are about to access may contain information from federally-assisted alcohol or drug abuse programs. If such information is present, then the following federally mandated warning applies: This information has been disclosed to you from records protected by federal confidentiality rules (42 CFR part 2). The federal rules prohibit you from making any further disclosure of this information unless further disclosure is expressly permitted by the written consent of the person to whom it pertains or as otherwise permitted by 42 CFR part 2. A general authorization for the release of medical or other information is NOT sufficient for this purpose. The Federal rules restrict any use of the information to criminally investigate or prosecute any alcohol or drug abuse patient.The records that you are about to access may contain highly sensitive health information, the redisclosure of which is protected by Article 27-F of the [facility] Public Health law. If you continue you may have access to information: Regarding HIV / AIDS; Provided by facilities licensed or operated by the [facility] Office of Mental Health; or Provided by the [facility] Office for People With Developmental Disabilities. If such information is present, then the following [facility] mandated warning applies: This information has been disclosed to you from confidential records which are protected by state law. State law prohibits you from making any further disclosure of this information without the specific written consent of the person to whom it pertains, or as otherwise permitted by law. Any unauthorized further disclosure in violation of state law may result in a fine or halfway sentence or both. A general authorization for the release of medical or other information is NOT sufficient authorization for further disc losure. Family History Family Member Name Family Member Gender Family Member Status Date o f Status Description Data Source(s) Unknown Male Problem [facility] ([facility]) Unknown Unknown Problem [facility] ([facility] Unknown Unknown Problem [facility] ([facility]) Encounters Encounter Providers Location Date Indications Data Source(s ) Outpatient Referrer: CASS CARLOS NP 09/17/2019 05:11:00 AM EDT [facility] Outpatient Referrer: CASS CARLOS NP 08/30/2019 07:24:00 AM EDT [facility] Outpatient Attender: JENNIFER donis 08/19/2019 05:20:00 PM EDT [facility] ([facility] Outpatient Referrer: CASS CARLOS NP 06/24/2019 03:47:00 PM EST [facility] Medications Medication Brand Name Start Date Product Form Dose Route Admi nistrative Instructions Pharmacy Instructions Status Indications Reaction Description Data Source(s) doxycycline hyclate 100 MG Oral Tablet DOXYCYCLINE HYCLATE 0 01/16/2020 12:00:00 AM EDT tablet 28 TAKE ONE CAPSULE BY MOUTH TW ICE A DAY FOR 2 WEEKS TAKE ONE CAPSULE BY MOUTH TWICE A DAY FOR 2 WEEKS SOLD: 01/16/2020 [facility] doxycycline hyclate 100 MG Oral Capsule DOXYCYCLINE HYCLATE 01/13/2020 12:00:00 AM EDT capsule 20 TAKE ONE CAPSULE BY MOUTH TW ICE A DAY TAKE ONE CAPSULE BY MOUTH TWICE A DAY SOLD: 01/13/2020 [facility] 150 mg 09/29/2019 12:00:00 AM EDT tablet 2 TAKE ONE TABLET BY MOUTH NOW AND MAY REPEAT FOR 1 DOSE IN 3 DAYS IF NEEDED TAKE ONE TABLET BY MOUTH NOW AND MAY REPEAT FOR 1 DOSE IN 3 DAYS IF NEEDED SOLD: 09/30/2019 [facility] Insurance Providers Payer name Policy type / Coverage type Policy ID Covered alliance party ID Covered alliance party's relationship to herrera Policy Herrera Plan Information SHERWIN [id number] NAGI [id number] [facility] [id number] SP [id number] [facility](MCAID) O [id number] S [id number] MEDICAID M [id number] [facility]/136E O [id number] S [id number] 'S ADMINISTRATION [id number] SP [id number] MEDICAID [id number] SP [id number] MEDICARE [id number] SP [id number] MEDICARE C [id number] S [id number] [id number] Medicaid Medigap Part B [id number] Self [id number] [facility] Dual Cov Plan Commercial [id number] Self [id number] [facility] MCRO [id number] SP [id number] [facility]([place]) O [id number] S [id number] [facility] CHOICE [id number] SP [id number] MEDICARE [id number] SP [id number] A MEDICAID [id number] SP [id number] MEDICARE C [id number] S [id number] A MEDICAID UNAVAILABLE [facility] 'S ADMINISTRATION [id number] SP [id number] Medicaid [place] Self Medicare Natl Gov't Servi Medicare Primary Self [facility] P [id number] S [id number] A [id number] Vital Signs ID Date Data Source UNK Name Value Range Interpretation Code Description Data Source(s) Body weight 117.936 kg 117.936 kg [facility], [facility] Body mass index (BMI) [Ratio] 38.4 kg/m2 38.4 k g/m2 [facility], ) Body weight 260.00 [lb_av] 260.00 [lb_av] MEDEN T ([facility], ) Body height 69 [in_i] 69 [in_i] [facility] ([facility], ) '9" Body mass index (BMI) [Ratio] 38.7 kg/m2 38.7 k g/m2 [facility] ([facility], [facility]) Body height 69 [in_i] 69 [in_i] MED[facility] ([facility]) 5'9" Body weight 262.00 [lb_av] 262.00 [lb_av] MED[facility] T ([facility], [facility]) Body temperature 98.4 [degF] 98.4 [degF] [facility] ([facility], [facility]) Oxygen saturation in Arterial blood by Pulse oximetry 98 % 98 % [facility] ([facility], [facility]) Respiratory rate 16 /min 16 /min [facility] ( [facility], [facility]) Heart rate 81 /min 81 /min [facility] ([facility], [facility]) Diastolic blood pressure 88 mm[Hg] 88 mm[Hg] [facility] ([facility], [facility]) Systolic blood pressure 128 mm[Hg] 128 mm[Hg] [facility] ([facility], [facility])
[2020-06-08] MEDS ORDERED: KETOROLAC 60MG 2ML VIAL IM ONE (22:15)
[2020-06-08] MEDS ORDERED: NORCO, ANEXSIA 5/325MG TABLET (HYDROcodone/ACETAMINOPHEN) PO ONE (23:00)
[2020-06-08] MEDS ORDERED: ONDANSETRON 4 MG ORAL DISINTEGRATING TAB PO ONE (23:00)
--- OUTSIDE RECORDS SUMMARY | 2020-06-08 23:12 | CCD ---
Author Author [facility] Organization [facility] Address Unknown Phone Unavailable Care Team Providers Care Car Starter Name Role Phone BREANNA, E CASS VIDEO TAPE EDITOR Unavailable Unavailable BREANNA, E CASS VIDEO TAPE EDITOR Unavailable Unavailable BREANNA, E CASS VIDEO TAPE EDITOR Unavailable Unavailable BREANNA, E CASS VIDEO TAPE EDITOR Unavailable Unavailable BREANNA, E CASS VIDEO TAPE EDITOR Unavailable Unavailable BREANNA, E CASS VIDEO TAPE EDITOR Unavailable Unavailable BREANNA, E CASS VIDEO TAPE EDITOR Unavailable Unavailable BREANNA, E CASS VIDEO TAPE EDITOR Unavailable Unavailable BREANNA, E CASS VIDEO TAPE EDITOR Unavailable Unavailable BREANNA, E CASS VIDEO TAPE EDITOR Unavailable Unavailable BREANNA, E CASS VIDEO TAPE EDITOR Unavailable Unavailable BREANNA, E CASS VIDEO TAPE EDITOR Unavailable Unavailable BREANNA, E CASS VIDEO TAPE EDITOR Unavailable Unavailable BREANNA, E CASS VIDEO TAPE EDITOR Unavailable Unavailable BREANNA, E CASS VIDEO TAPE EDITOR Unavailable Unavailable BREANNA, E CASS VIDEO TAPE EDITOR Unavailable Unavailable BREANNA, E CASS VIDEO TAPE EDITOR Unavailable Unavailable BREANNA, E CASS VIDEO TAPE EDITOR Unavailable Unavailable BREANNA, E CASS VIDEO TAPE EDITOR Unavailable Unavailable BREANNA, E CASS VIDEO TAPE EDITOR Unavailable Unavailable BREANNA, E CASS VIDEO TAPE EDITOR Unavailable Unavailable BREANNA, E CASS VIDEO TAPE EDITOR Unavailable Unavailable BREANNA, E CASS VIDEO TAPE EDITOR Unavailable Unavailable BREANNA, E CASS VIDEO TAPE EDITOR Unavailable Unavailable BREANNA, E CASS VIDEO TAPE EDITOR Unavailable Unavailable BREANNA, E CASS VIDEO TAPE EDITOR Unavailable Unavailable BREANNA, E CASS VIDEO TAPE EDITOR Unavailable Unavailable BREANNA, E CASS VIDEO TAPE EDITOR Unavailable Unavailable BREANNA, E CASS VIDEO TAPE EDITOR Unavailable Unavailable BREANNA, E CASS VIDEO TAPE EDITOR Unavailable Unavailable BASSEM A JENNIFER JACOBSON Unavailable [...] is protected by Article 27-F of the [facility] Public Health law. If you continue you may have access to information: Regarding HIV / AIDS; Provided by facilities licensed or operated by the [facility] Office of Mental Health; or Provided by the [facility] Office for People With Developmental Disabilities. If such information is present, then the following [facility] mandated warning applies: This information has been [...] law may result in a fine or chcf sentence or both. A general authorization for [...] JENNIFER donis 08/19/2019 05:20:00 PM EDT [facility] ([facility]) Outpatient Referrer: CASS [...] type / Coverage type Policy ID Covered republican ID Covered republican's relationship to herrera Policy Herrera Plan Information SHERWIN [id number] NAGI [id number] [facility] [id number] SP [id number] [facility](MCAID) O [id number] S [id number] MEDICAID M [id number] S [id number] [facility]/136E O [id number] S [id number] 'S ADMINISTRATION [id number] SP [id number] MEDICAID [id number] SP [id number] MEDICARE [id number] SP [id number] MEDICARE C [id number] S [id number] [id number] Medicaid Medigap Part B [id number] Self [id number] [facility] Dual Cov Plan Commercial [id number] Self [id number] [facility] MCRO [id number] SP [id number] [facility]([place]CAID) O [id number] S [id number] [facility] CHOICE [id number] SP [id number] MEDICARE [id number] SP [id number] A MEDICAID [id number] SP [id number] MEDICARE C [id number] S [id number] A MEDICAID UNAVAILABLE UNA[place] [facility] 'S ADMINISTRATION [id number] SP [id number] Medicaid [place] Self Medicare Natl Gov't Servi Medicare Primary Self [facility] P [id number] S [id number] A [id number] Vital Signs ID Date Data Source UNK Name Value Range Interpretation Code Description Data Source(s) Body weight 117.936 kg 117.936 kg [facility], [facility] Body mass index (BMI) [Ratio] 38.4 kg/m2 38.4 k g/m2 [facility], ) Body weight 260.00 [lb_av] 260.00 [lb_av] MEDEN T ([facility], ) Body height 69 [in_i] 69 [in_i] [facility] ([facility], ) '9" Body mass index (BMI) [Ratio] 38.7 kg/m2 38.7 k g/m2 [facility] ([facility], [facility]) Body height 69 [in_i] 69 [in_i] [facility] ([facility], [facility]) 5'9" Body weight 262.00 [lb_av] 262.00 [lb_av] MEDEN T ([facility], [facility]) Body temperature 98.4 [degF] 98.4 [degF] [facility] ([facility], [facility]) Oxygen saturation in Arterial blood by Pulse oximetry 98 % 98 % [facility] ([facility], [facility]) Respiratory rate 16 /min 16 /min [facility] ( [facility], [facility]) Heart rate 81 /min 81 /min [facility] ([facility], [facility]) Diastolic blood pressure 88 mm[Hg] 88 mm[Hg] [facility] ([facility], [facility]) Systolic blood pressure 128 mm[Hg] 128 mm[Hg] [facility] ([facility], [facility])
[2020-06-09] MEDS ORDERED: NORCO 5/325MG TABLET (BULK FOR ED) PO ONE (00:30)
[2020-06-09 00:45] VITALS: BP 137/78
--- NOTE | 2020-06-09 14:47 | ECGEPIP ---
[facility] - ED Test Date: 2020-06-08 Pat Name: KIM BUCIO Department: Room: - Gender: Female Manual Lathe Operator: ZAHRAA : 1975 Requested By: LARA Pope PA-C Order Number: [id number] Reading MD: Karin Hernandez Measurements Intervals [place] Rate: 91 P: 68 SD: 179 QRS: 72 QRSD: 101 T: 54 QT: 337 QTc: 415 Interpretive Statements SINUS RHYTHM INCREASED RATE 01/17/20 Electronically Signed on 06-09-2020 14:46:50 EST by Karin Hernandez
== END 2020-06-09 00:51 | disposition home or self-care (01) ==
LOC: M ED 21:06
DX: K08.89 Other specified disorders of teeth and supporting structures (principal); M32.9 Systemic lupus erythematosus, unspecified; M35.00 Sjogren syndrome, unspecified; Z79.899 Other long term (current) drug therapy; Z88.5 Allergy status to narcotic agent; Z88.8 Allergy status to other drugs, medicaments and biological substances
CPT/HCPCS: 93005; 96372; 99283; J1885; Q0162

== ENCOUNTER → 2020-07-01 | Outpatient (REF) | payer MEDICARE, MEDICAID ==
[~2020-07-01] MED LIST changes: +QUET50TA3 PO; -QUET5TAB PO
[2020-07-01 21:34] LABS: BASO # 0.1 10^3/uL (0.0-0.2); EOS # 0.1 10^3/uL (0.0-0.5); EOS % 1.7 % (0.0-3.0); HEMATOCRIT 39.9 % (36.0-47.0); HEMOGLOBIN 11.9 g/dl (12.0-15.5); LYMPH # 2.4 10^3/uL (1.5-5.0); LYMPH % 29.4 % (24.0-44.0); MEAN CORPUSCULAR HEMOGLOBIN 23.9 pg (27.0-33.0); MEAN CORPUSCULAR HGB CONC 29.8 g/dl (32.0-36.5); MEAN CORPUSCULAR VOLUME 80.3 fl (80.0-96.0); MONO # 0.5 10^3/uL (0.0-0.8); MONO % 5.8 % (2.0-8.0); NEUTROPHILS % 61.5 % (36.0-66.0); PLATELET COUNT, AUTOMATED 456 10^3/uL (150-450); RED BLOOD COUNT 4.97 10^6/uL (4.00-5.40); WHITE BLOOD COUNT 8.2 10^3/uL (4.0-10.0)
[2020-07-01 21:52] LABS: ALBUMIN 3.7 GM/DL (3.2-5.2); ALT/SGPT 35 U/L (12-78); BILIRUBIN,TOTAL 0.2 MG/DL (0.2-1.0); BLOOD UREA NITROGEN 10 MG/DL (7-18); CARBON DIOXIDE LEVEL 27 MEQ/L (21-32); CHLORIDE LEVEL 104 MEQ/L (98-107); CREATININE FOR GFR 0.66 MG/DL (0.55-1.30); FREE T4 1.06 NG/DL (0.76-1.46); GLOMERULAR FILTRATION RATE > 60.0 (>58); GLUCOSE, FASTING 110 MG/DL (70-100); IRON (FE) 36 UG/DL (50-170); POTASSIUM SERUM 4.1 MEQ/L (3.5-5.1); SODIUM LEVEL 139 MEQ/L (136-145); TOTAL PROTEIN 7.3 GM/DL (6.4-8.2)
[2020-07-01 21:57] LABS: TOTAL 25(OH) VITAMIN D 13.7 NG/ML (30.0-100.0)
[2020-07-01 22:03] LABS: HEMOGLOBIN A1c 5.9 %
[2020-07-03 16:07] LABS: EBV VIRAL CAPSID AG IgG >600.0 U/mL (0.0-17.9); EBV VIRAL CAPSID AG IgM <36.0 U/mL (0.0-35.9); Lyme Disease IgG/IgM Antibodie <0.91 ISR (0.00-0.90); Lyme Disease IgM Ab Quantitati <0.80 index (0.00-0.79)
== END ==
LOC: M LAB 21:25
PROVIDERS: ATTEND Physician Assistant
DX: R53.83 Other fatigue (principal); D50.9 Iron deficiency anemia, unspecified

== ENCOUNTER → 2020-08-09 | Outpatient (REF) | payer MEDICARE, MEDICAID ==
[2020-08-09 16:56] LABS: APPEARANCE, URINE HAZY (CLEAR); BACTERIA, URINE AUTO 2+ (NEGATIVE); BILIRUBIN, URINE AUTO NEGATIVE (NEGATIVE); BLOOD, URINE BLOOD NEGATIVE (NEGATIVE); COLOR, URINE COLORLESS (YELLOW); GLUCOSE, URINE (UA) AUTO NEGATIVE (NEGATIVE); KETONE, URINE AUTO NEGATIVE (NEGATIVE); LEUKOCYTE ESTERASE, URINE AUTO NEGATIVE (NEGATIVE); NITRITE, URINE AUTO NEGATIVE (NEGATIVE); PROTEIN, URINE AUTO NEGATIVE (NEGATIVE); RBC, URINE AUTO 0 /HPF (0-3); SPECIFIC GRAVITY URINE AUTO 1.002 (1.002-1.035); SQUAMOUS EPITHELIAL CELL UR AU 1 /HPF (0-6); UROBILINOGEN, URINE AUTO 0.2 mg/dL (0.0-2.0); WBC, URINE AUTO 1 /HPF (0-3)
== END ==
LOC: M LAB REF 16:18
PROVIDERS: ATTEND Physician Assistant
DX: N39.0 Urinary tract infection, site not specified (principal)

== ENCOUNTER → 2020-08-19 | Outpatient (CLI) | payer OTHER ==
--- NOTE | 2020-08-19 10:54 | REPMRS ---
Patient History The patient states she had a clinical breast exam in January 2020. Family history of pancreatic cancer at age 50 or over in father. 3D TOMOSYNTHESIS WAS PERFORMED. [facility] for [facility] 10.3%. Volpara breast density b. Digital Woman Screen Mammo: August 19, 2020 - Exam #: [id number] Bilateral CC and MLO view(s) were taken. Technologist: Eula Boland, Technologist Prior study comparison: December 10, 2017, bilateral digital woman screen mammo performed at [facility]. December 08, 2016, digital woman screen mammo performed at [facility]. FINDINGS: There are scattered fibroglandular densities. There has been no change in the appearance of the mammogram from the prior studies. There is a mild amount of residual fibroglandular tissue which is fairly symmetric. There is no interval development of dominant mass, architectural distortion, or clustered microcalcification suggestive of malignancy. Assessment: BI-RADS/ACR category 1 mammogram. Negative Mammogram. Recommendation Routine screening mammogram in 1 year (for women over age 40). This mammogram was interpreted with the aid of an FDA-approved computer-aided dectection system. Electronically Signed By: Long Morales MD 08/19/20 [id number]
== END ==
LOC: M WHC 10:01
PROVIDERS: ATTEND Family Medicine
DX: Z12.31 Encounter for screening mammogram for malignant neoplasm of breast (principal)

== ENCOUNTER → 2022-02-23 | Outpatient (REF) | payer OTHER, MEDICAID ==
[~2022-02-23] MED LIST changes: -DOXY100C PO; +DOXY100C3 PO; -LATU40TA PO; +LATU40TA2 PO; -QUET50TA3 PO; +QUET50TA4 PO
== END ==
LOC: M LAB REF 16:23
PROVIDERS: ATTEND Physician Assistant
DX: R52 Pain, unspecified (principal)

== ENCOUNTER 2022-04-01 14:09 | Emergency (ER) | payer MEDICARE, OTHER ==
[~2022-04-01] VITALS: Ht 172.7 cm; Wt 113.6 kg
[2022-04-01 16:39] LABS: BASO # 0.1 10^3/uL (0.0-0.2); EOS # 0.3 10^3/uL (0.0-0.5); EOS % 4.5 % (0.0-3.0); HEMATOCRIT 40.7 % (36.0-47.0); HEMOGLOBIN 12.5 g/dl (12.0-15.5); LYMPH # 2.6 10^3/uL (1.5-5.0); LYMPH % 43.8 % (24.0-44.0); MEAN CORPUSCULAR HEMOGLOBIN 26.4 pg (27.0-33.0); MEAN CORPUSCULAR HGB CONC 30.7 g/dl (32.0-36.5); MEAN CORPUSCULAR VOLUME 85.9 fl (80.0-96.0); MONO # 0.5 10^3/uL (0.0-0.8); NEUTROPHILS # 2.5 10^3/uL (1.5-8.5); NEUTROPHILS % 41.4 % (36.0-66.0); PLATELET COUNT, AUTOMATED 340 10^3/uL (150-450); RED BLOOD COUNT 4.74 10^6/uL (4.00-5.40)
[2022-04-01] MEDS ORDERED: KETOROLAC 30 MG/ML 1ML VIAL IV ONE (17:10)
[2022-04-01 17:20] LABS: ERYTHROCYTE SEDIMENTATION RATE 13 mm/hr (0-20)
[2022-04-01 17:22] LABS: ALBUMIN 3.9 G/DL (3.2-5.2); ALT/SGPT 26 U/L (7.0-40); BILIRUBIN,DIRECT < 0.1 MG/DL (<0.4); BILIRUBIN,TOTAL 0.2 MG/DL (0.3-1.2); TOTAL PROTEIN 6.3 G/DL (5.7-8.2)
[2022-04-01] MEDS ORDERED: LIDOCAINE 5% (LIDODERM) PATCH TD ONE (19:30)
[2022-04-01] MEDS ORDERED: ACETAMINOPHEN 500 MG TAB PO ONE (19:30)
[2022-04-01] MEDS ORDERED: ONDANSETRON 4MG 2ML VIAL IV ONE (19:30)
[2022-04-01] MEDS ORDERED: diphenhydrAMINE 50MG/ML VIAL IV STA (20:19)
[2022-04-01] MEDS ORDERED: MORPHINE 4 MG/ML 1ML VIAL/SYRINGE IV ONE (20:20)
[2022-04-01 20:29] VITALS: BP 135/62
== END 2022-04-01 21:41 | disposition home or self-care (01) ==
LOC: EDBD 14:09 → M ED 15:44
DX: M54.50 Low back pain, unspecified (principal); R10.9 Unspecified abdominal pain; M32.9 Systemic lupus erythematosus, unspecified; Z87.442 Personal history of urinary calculi; Z90.49 Acquired absence of other specified parts of digestive tract; Z88.8 Allergy status to other drugs, medicaments and biological substances; Z79.899 Other long term (current) drug therapy
CPT/HCPCS: 74176; 80047; 80076; 81002; 84702; 85025; 85652; 86140; 96374; 96375; 99284; J1200; J1885; J2270; J2405

== ENCOUNTER → 2022-04-21 | Outpatient (CLI) | payer OTHER | LOC: M WHC 12:34 | PROVIDERS: ATTEND Family Medicine | DX: Z12.31 Encounter for screening mammogram for malignant neoplasm of breast (principal) ==

== ENCOUNTER → 2022-10-01 | Outpatient (REF) | payer MEDICARE, MEDICAID ==
[2022-10-01 17:47] LABS: APPEARANCE, URINE CLEAR (CLEAR); BACTERIA, URINE AUTO NEGATIVE (NEGATIVE); BILIRUBIN, URINE AUTO NEGATIVE (NEGATIVE); BLOOD, URINE BLOOD NEGATIVE (NEGATIVE); COLOR, URINE YELLOW (YELLOW); GLUCOSE, URINE (UA) AUTO NEGATIVE (NEGATIVE); KETONE, URINE AUTO NEGATIVE (NEGATIVE); LEUKOCYTE ESTERASE, URINE AUTO NEGATIVE (NEGATIVE); NITRITE, URINE AUTO NEGATIVE (NEGATIVE); PROTEIN, URINE AUTO NEGATIVE (NEGATIVE); RBC, URINE AUTO 0 /HPF (0-3); SPECIFIC GRAVITY URINE AUTO 1.011 (1.002-1.035); SQUAMOUS EPITHELIAL CELL UR AU 2 /HPF (0-6); UROBILINOGEN, URINE AUTO 0.2 mg/dL (0.0-2.0); WBC, URINE AUTO 0 /HPF (0-3)
== END ==
LOC: M LAB REF 17:26
PROVIDERS: ATTEND Physician Assistant Medical
DX: N39.0 Urinary tract infection, site not specified (principal)

== ENCOUNTER 2022-10-10 11:05 | Emergency (ER) | payer MEDICAID, MEDICARE ==
[~2022-10-10] VITALS: Ht 172.7 cm; Wt 118.2 kg
[2022-10-10 12:13] LABS: RSV AMPLIFICATION NEGATIVE (NEGATIVE)
[2022-10-10] MEDS ORDERED: IPRATROPIUM 0.5MG/ALBUTEROL 2.5MG INH SOL UD 3ML (DUONEB) NEB ONE (12:20)
[2022-10-10] MEDS ORDERED: ALBU8.5H INH (14:11)
[2022-10-10] MEDS ORDERED: DOXY-444 PO (14:11)
[2022-10-10] MEDS ORDERED: BENZ200C70 PO (14:11)
[2022-10-10 14:18] VITALS: BP 160/74
== END 2022-10-10 14:19 | disposition home or self-care (01) ==
LOC: M ED 11:05
DX: J20.9 Acute bronchitis, unspecified (principal); M32.9 Systemic lupus erythematosus, unspecified; F43.10 Post-traumatic stress disorder, unspecified; F31.9 Bipolar disorder, unspecified; E78.5 Hyperlipidemia, unspecified; Z88.8 Allergy status to other drugs, medicaments and biological substances; Z79.899 Other long term (current) drug therapy; Z79.52 Long term (current) use of systemic steroids

== ENCOUNTER 2022-12-27 17:30 | Emergency (ER) | payer MEDICARE, OTHER ==
[~2022-12-27] VITALS: Ht 172.7 cm; Wt 120.0 kg
[~2022-12-27 17:30] MED LIST changes: +ALBU8.5H INH; +BENZ200C70 PO; +DOXY-444 PO; -HYDR200T3 PO; +HYDR200T46 PO
[2022-12-27] MEDS ORDERED: NS 1,000 ML IV ONE (20:05)
[2022-12-27] MEDS ORDERED: ISOVUE-370 76% 100ML VIAL As Ordered ONE (20:11)
[2022-12-27 20:32] LABS: BASO # 0.1 10^3/uL (0.0-0.2); BASO % 0.6 % (0.0-1.0); EOS # 0.2 10^3/uL (0.0-0.5); EOS % 1.4 % (0.0-3.0); HEMATOCRIT 42.6 % (36.0-47.0); HEMOGLOBIN 13.5 g/dl (12.0-15.5); LYMPH # 3.2 10^3/uL (1.5-5.0); LYMPH % 28.6 % (24.0-44.0); MEAN CORPUSCULAR HEMOGLOBIN 26.7 pg (27.0-33.0); MEAN CORPUSCULAR HGB CONC 31.7 g/dl (32.0-36.5); MEAN CORPUSCULAR VOLUME 84.4 fl (80.0-96.0); MONO # 0.8 10^3/uL (0.0-0.8); MONO % 7.4 % (2.0-8.0); NEUTROPHILS # 6.8 10^3/uL (1.5-8.5); NEUTROPHILS % 61.5 % (36.0-66.0); PLATELET COUNT, AUTOMATED 383 10^3/uL (150-450); RED BLOOD COUNT 5.05 10^6/uL (4.00-5.40); WHITE BLOOD COUNT 11.1 10^3/uL (4.0-10.0)
[2022-12-27 20:48] LABS: INR 0.95; PROTHROMBIN TIME 12.4 SECONDS (12.5-14.5)
[2022-12-27 20:49] LABS: PARTIAL THROMBOPLASTIN TIME 26.7 SECONDS (24.8-34.2)
[2022-12-27 21:57] VITALS: BP 134/71; TEMP 98.7; O2SAT 99
== END 2022-12-27 21:59 | disposition home or self-care (01) ==
LOC: M ED 17:30
DX: G89.18 Other acute postprocedural pain (principal); Z88.8 Allergy status to other drugs, medicaments and biological substances; Z88.5 Allergy status to narcotic agent; R07.9 Chest pain, unspecified; I50.20 Unspecified systolic (congestive) heart failure; K21.9 Gastro-esophageal reflux disease without esophagitis; Z87.442 Personal history of urinary calculi; F31.9 Bipolar disorder, unspecified; R53.82 Chronic fatigue, unspecified; F43.10 Post-traumatic stress disorder, unspecified; Z79.899 Other long term (current) drug therapy; Z79.51 Long term (current) use of inhaled steroids; Z79.52 Long term (current) use of systemic steroids
CPT/HCPCS: 36415; 73206; 80047; 85025; 85610; 85730; 86850; 86900; 86901; 99284; Q9967

== ENCOUNTER → 2023-06-27 | Outpatient (CLI) | payer OTHER | LOC: M WHC 11:34 | PROVIDERS: ATTEND Nurse Practitioner Family | DX: Z12.31 Encounter for screening mammogram for malignant neoplasm of breast (principal) ==

== ENCOUNTER 2023-10-12 11:13 | Emergency (ER) | payer MEDICARE, OTHER ==
[~2023-10-12] VITALS: Ht 172.7 cm; Wt 122.7 kg
[~2023-10-12 11:13] MED LIST changes: +DOXY-440 PO; -DOXY-444 PO
[2023-10-12 11:14] VITALS: TEMP 97.5
[2023-10-12] MEDS ORDERED: LAMI1TAB7 PO (11:47)
[2023-10-12] MEDS ORDERED: SERO1TAB PO (11:47)
[2023-10-12 11:53] LABS: BASO # 0.1 10^3/uL (0.0-0.2); BASO % 0.8 % (0.0-1.0); EOS # 0.2 10^3/uL (0.0-0.5); EOS % 1.9 % (0.0-3.0); HEMATOCRIT 45.7 % (36.0-47.0); HEMOGLOBIN 14.7 g/dl (12.0-15.5); LYMPH # 2.3 10^3/uL (1.5-5.0); LYMPH % 29.2 % (24.0-44.0); MEAN CORPUSCULAR HEMOGLOBIN 26.9 pg (27.0-33.0); MEAN CORPUSCULAR HGB CONC 32.2 g/dl (32.0-36.5); MEAN CORPUSCULAR VOLUME 83.5 fl (80.0-96.0); MONO # 0.4 10^3/uL (0.0-0.8); MONO % 4.5 % (2.0-8.0); NEUTROPHILS % 63.2 % (36.0-66.0); PLATELET COUNT, AUTOMATED 347 10^3/uL (150-450); RED BLOOD COUNT 5.47 10^6/uL (4.00-5.40); WHITE BLOOD COUNT 7.9 10^3/uL (4.0-10.0)
[2023-10-12 12:04] LABS: INR 0.9; PROTHROMBIN TIME 11.9 SECONDS (12.5-14.5)
[2023-10-12 12:19] LABS: LIPASE 51 U/L (12-53)
[2023-10-12 12:22] LABS: ALBUMIN 3.7 G/DL (3.2-5.2); ALKALINE PHOSPHATASE 90 U/L (46-116); ALT/SGPT 28 U/L (7.0-40); AST/SGOT 16 U/L (<34); BILIRUBIN,DIRECT < 0.1 MG/DL (<0.4); BILIRUBIN,TOTAL 0.3 MG/DL (0.3-1.2); BLOOD UREA NITROGEN 14 MG/DL (9-23); CALCIUM LEVEL 9.2 MG/DL (8.5-10.1); CARBON DIOXIDE LEVEL 25 MMOL/L (20-31); CHLORIDE LEVEL 105 MMOL/L (98-107); CK-MB VALUE MASS < 1.0 NG/ML (<3.6); CREATININE FOR GFR 0.51 MG/DL (0.55-1.30); GLOMERULAR FILTRATION RATE > 60.0 (>58); GLUCOSE, FASTING 178 MG/DL (60-100); SODIUM LEVEL 138 MMOL/L (136-145); TOTAL PROTEIN 6.9 G/DL (5.7-8.2)
[2023-10-12 12:23] LABS: CPK CREATINE PHOSPHOKINASE 49 U/L (34-145); MB/CK RELATIVE INDEX 2.04 (< OR =4)
[2023-10-12] MEDS: ASPIRIN 81MG CHEW TABLET PO ONE (12:23)
[2023-10-12] MEDS ORDERED: ISOVUE-370 76% 100ML VIAL As Ordered ONE (12:25)
[2023-10-12 12:31] LABS: HCG, SERUM QUALITATIVE NEGATIVE (NEGATIVE)
[2023-10-12 13:37] LABS: CK-MB VALUE MASS < 1.0 NG/ML (<3.6); CPK CREATINE PHOSPHOKINASE 64 U/L (34-145); MB/CK RELATIVE INDEX 1.56 (< OR =4)
[2023-10-12] MEDS: FUROSEMIDE 40MG/4ML VIAL IV ONE (15:06)
[2023-10-12 15:56] VITALS: O2SAT 95
[2023-10-12 20:05] VITALS: BP 124/72; O2SAT 96
== END 2023-10-12 20:23 | disposition home or self-care (01) ==
LOC: M ED 11:13
DX: R07.9 Chest pain, unspecified (principal); G51.9 Disorder of facial nerve, unspecified; R20.2 Paresthesia of skin; R06.00 Dyspnea, unspecified; R00.0 Tachycardia, unspecified; J98.11 Atelectasis; K76.0 Fatty (change of) liver, not elsewhere classified; K21.9 Gastro-esophageal reflux disease without esophagitis; F43.10 Post-traumatic stress disorder, unspecified; F31.9 Bipolar disorder, unspecified; Z88.5 Allergy status to narcotic agent; Z88.8 Allergy status to other drugs, medicaments and biological substances; Z79.52 Long term (current) use of systemic steroids; Z79.899 Other long term (current) drug therapy; Z79.2 Long term (current) use of antibiotics; Z86.79 Personal history of other diseases of the circulatory system; R06.02 Shortness of breath
CPT/HCPCS: 70544; 70547; 70551; 71275; 80048; 80076; 82550; 82553; 83690; 83880; 84484; 84703; 85025; 85610; 87486; 87581; 87633; 87798; 93005; 93041; 93970; 94760; 96374; 99285; J1940; Q9967